=== PATIENT | male | born 1965 | race Caucasian/White ===

== ENCOUNTER 2017-03-09 17:34 | Emergency (ER) | payer MEDICARE, OTHER ==
[2017-03-09 17:55] VITALS: BP 122/90; PULSE 93; RESP 22; TEMP 97.5
[2017-03-09] MEDS ORDERED: KETOROLAC 30 MG/ML 1 ML VIAL IM STA (18:04)
[2017-03-09] MEDS ORDERED: ORPHENADRINE 30 MG/ML 2 ML VIAL IM STA (18:04)
--- NOTE | 2017-03-09 18:20 | ED ---
Back Pain HPI - General Chief Complaint: Back Pain/Injury Stated Complaint: Pinched nerve Time Seen by Provider: 03/09/17 17:56 Source: patient, RN notes reviewed Limitations: no limitations - History of Present Illness Initial Comments: This is a 51-year-old male who presents to the emergency department with chief complaint of low back pain. Patient states that 2 days ago he developed right lower back pain. Patient states that he has fusion of the cervical vertebrae so he is unable to twist his neck. He states that he has to twist his entire body to look from [id number]. 2 days ago he twisted and had instant pain in his right low back. He states that there is a knot in his muscle and his partner at bedside states that she she has been trying to massage it. Patient denies any saddle paresthesias, numbness or tingling, radiation of pain down the legs or loss of bladder or bowel function. Denies fever, chills, chest pain , shortness of breath, abdominal pain, nausea or vomiting, constipation or diarrhea, dysuria or hematuria, numbness or tingling, headache or vision changes. - Related Data Home Medications Medication Instructions Recorded Confirmed Gabapentin [Neurontin] 1,200 mg PO TID 09/19/14 03/05/15 Meloxicam [Mobic] 15 mg PO DAILY 09/19/14 03/05/15 Acetaminophen Tab [Tylenol Tab] 325 - 650 mg PO Q4H PRN 03/09/17 03/09/17 Atorvastatin [Lipitor] 10 mg PO DAILY 03/09/17 03/09/17 Diclofenac Sodium [Voltaren Gel] 2 gram TOPICAL DAILY PRN 03/09/17 03/09/17 Hydrochlorothiazide [Hydrodiuril] 25 mg PO DAILY 03/09/17 03/09/17 Prazosin HCl 2 mg PO DAILY 03/09/17 03/09/17 Venlafaxine HCl [Effexor XR] 75 mg PO DAILY 03/09/17 03/09/17 traMADol HCL [Ultram] 50 mg PO DAILY PRN 03/09/17 03/09/17 Previous Rx's Medication Instructions Recorded Cyclobenzaprine [Flexeril] 10 mg PO TID #12 tab 03/09/17 Allergies Allergy/AdvReac Type Severity Reaction Status Date / Time No Known Allergies Allergy Verified 03/09/17 18:27 Review of Systems ROS Statement: Those systems with pertinent positive or pertinent negative responses have been documented in the HPI. ROS Other: All systems not noted in ROS Statement are negative. Past Medical History Past Medical History: Hypertension History of Any Multi-Drug Resistant Organisms: None Reported Past Surgical History: Back Surgery Additional Past Surgical History / Comment(s): nerve blocks to back, c4-5 fusions, back surg 02/07, neck surgery 02/25 Past Psychological History: No Psychological Hx Reported Smoking Status: Never smoker Past Alcohol Use History: Occasional Past Drug Use History: None Reported General Exam - General Exam Comments Initial Comments: General: Awake and alert, well-developed; in no apparent distress. HEENT: Head atraumatic, normocephalic. Pupils are equal, round and reactive to light. Extraocular movements intact. Oropharynx moist without erythema or exudate. Neck: Supple. Normal ROM. Cardiovascular: Regular rate and rhythm. No murmurs, rubs or gallops. Chest symmetrical. Respiratory: Lungs clear to auscultation bilaterally. No wheezes, rales or rhonchi. Normal respiratory effort with no use of accessory muscles. Musculoskeletal: Normal ROM of thoracic and lumbar spine. No vertebral bony point tenderness. Patient has a tender, mobile mass overlying the right SI joint. This area is tender on palpation. Sensation is intact. Pedal pulses are 2+ equal and palpable bilaterally. Skin: [place], warm and dry without rashes or lesions. Neurological: Alert and oriented x3. CN II-XII grossly intact. Speech is fluent and answers are appropriate. No focal neuro deficits. Psychiatric: Normal mood and affect. No overt signs of depression or anxiety noted. Limitations: no limitations Course Vital Signs 03/09/17 17:50 Temperature 97.5 F L Pulse Rate 93 Respiratory 22 Rate Blood Pressure 122/90 O2 Sat by Pulse 97 Oximetry Medical Decision Making - Medical Decision Making This is a 51-year-old male who presents to the emergency department with chief complaint of low back pain. Patient denies saddle paresthesias, loss of bladder or bowel function, numbness and tingling. He is ambulating normally. Patient has a tender muscular knot right-side of lumbar back. He was given Toradol and Norflex while in the emergency department. Patient states he takes meloxicam and tramadol at home. Patient will be discharged home with Flexeril prescription. He was advised to use a heating pad intermittently. Return parameters were discussed. Patient is in agreement with plan and voices understanding. All questions were answered. Disposition Clinical Impression: Strain of lumbar region Disposition: HOME SELF-CARE Condition: Good Instructions: Low Back Strain (ED), Lower Back Exercises (ED) Additional Instructions: Please take medications as prescribed. Please use a heating pad intermittently. Please follow up with primary care provider within 1-2 days. Return to emergency department if symptoms should worsen or any concerns arise. Prescriptions: Cyclobenzaprine [Flexeril] 10 mg PO TID #12 tab Referrals: Pérez Uribe MD [Primary Care Provider] - 1-2 days Time of Disposition: 18:25
== END 2017-03-09 18:43 | disposition home or self-care (01) ==
LOC: EC 17:34
DX: S39.012A Strain of muscle, fascia and tendon of lower back, initial encounter (principal); I10 Essential (primary) hypertension; Z79.1 Long term (current) use of non-steroidal anti-inflammatories (NSAID); Z79.899 Other long term (current) drug therapy
CPT/HCPCS: 99282; 96372 ×2; J2360; J1885

== ENCOUNTER → 2017-06-19 | Outpatient (CLI) | payer MEDICARE, OTHER ==
[2017-06-19 10:44] LABS: HCT 42.5 % (39.0-53.0); HGB 13.8 gm/dL (13.0-17.5); MCH 27.9 pg (25.0-35.0); MCHC 32.4 g/dL (31.0-37.0); MCV 86.2 fL (80.0-100.0); Mean Platelet Volume 6.6; Platelet Count 314 k/uL (150-450); RBC 4.93 m/uL (4.30-5.90); RDW 13.5 % (11.5-15.5); WBC 8.6 k/uL (3.8-10.6)
[2017-06-19 11:27] LABS: ALT 39 U/L (21-72); AST 23 U/L (17-59); Albumin 3.9 g/dL (3.5-5.0); Alkaline Phosphatase 79 U/L (38-126); Anion Gap 12 mmol/L; Blood Urea Nitrogen 25 mg/dL (9-20); Calcium 9.2 mg/dL (8.4-10.2); Carbon Dioxide 27 mmol/L (22-30); Chloride 101 mmol/L (98-107); Cholesterol 200 mg/dL (<200); Glucose 125 mg/dL (74-99); HDL Cholesterol 40 mg/dL (40-60); LDL Cholesterol,Calculated 138 mg/dL (0-99); Potassium 4.3 mmol/L (3.5-5.1); Sodium 140 mmol/L (137-145); Total Bilirubin 0.9 mg/dL (0.2-1.3); Total Protein 6.5 g/dL (6.3-8.2); Triglycerides 109 mg/dL (<150)
[2017-06-19 12:15] LABS: Prostate Specific Antigen 0.87 ng/mL (0.00-4.00)
== END | disposition home or self-care (01) ==
LOC: LABWHC1 10:05
PROVIDERS: ATTEND Family Medicine
DX: Z00.00 Encounter for general adult medical examination without abnormal findings (principal); Z13.9 Encounter for screening, unspecified
CPT/HCPCS: 36415; 80053; 80061; 84153; 85027; 86803

== ENCOUNTER 2019-08-20 09:12 | Day surgery (SDC) | payer MEDICARE, OTHER ==
[2019-08-18 11:55] VITALS: BMI 33.6
[~2019-08-20 09:12] MED LIST: LACTATED RINGERS 1,000 ML IV SCH
[2019-08-20] MEDS ORDERED: LIDOCAINE 1% (10MG/ML) FOR IV START INTRADERMA ONE (09:46)
[2019-08-20] MEDS ORDERED: PROPOFOL 10 MG/ML 20 ML VIAL IV ONE (10:16)
[2019-08-20] MEDS ORDERED: LIDOCAINE 1% INJ 10MG/ML (20 ML MDV) ONE (10:16)
--- NOTE | 2019-08-20 10:41 | P.PCN ---
Date of Procedure: 08/20/19 Description of Procedure: BRIEF HISTORY: Patient is a 53-year-old male presenting for outpatient colonoscopy for evaluation of history of a benign or neoplasm of the colon. Denies any change in bowel habits, blood per rectum or abdominal pain. Last colonoscopy 2017 significant for poor prep. PROCEDURE PERFORMED: Colonoscopy with polypectomy. PREOPERATIVE DIAGNOSIS: Benign neoplasm of colon, history of colon polyps, last colonoscopy 2017 with poor prep. ESTIMATED BLOOD LOSS: Minimal. IV sedation per Anesthesia. PROCEDURE: After informed consent was obtained, the patient, was brought into the endoscopy unit. IV sedation was administered by Anesthesia under continuous monitoring. Digital rectal examination was normal. Initially the Olympus CF-190 flexible video colonoscope was then inserted in the rectum, gradually advanced into the cecum without any difficulty. Careful examination was performed as the scope was gradually being withdrawn. Ileocecal valve and the appendiceal orifice were visualized and appeared normal. The terminal ileum was intubated and appeared normal. Prep was excellent. Mucosa of the cecum, ascending colon, transverse colon, descending colon, sigmoid colon, and rectum appeared normal. Diminutive 2 mm ascending colon polyp removed with cold forcep polypectomy. A few scattered diverticula noted throughout the colon. Retroflexion was performed in the rectum and no lesions were seen, low-grade internal hemorrhoids were seen. The patient tolerated the procedure well. IMPRESSION: Diminutive ascending colon polyp removed with cold forcep polypectomy. Mild pandiverticulosis. RECOMMENDATIONS: Findings of this examination were discussed with the patient. Okay to resume diet. Okay to resume medications. Await pathology from polypectomy. Would recommend repeat colonoscopy in 7 years pending pathology from polypectomy.
[2019-08-21 08:44] VITALS: BP 111/72; PULSE 78; RESP 16; TEMP 97.8
== END 2019-08-20 11:20 | disposition home or self-care (01) ==
LOC: ORWHC2ENDO 09:12
PROVIDERS: ATTEND Internal Medicine
DX: K63.5 Polyp of colon (principal); K57.30 Diverticulosis of large intestine without perforation or abscess without bleeding; K64.8 Other hemorrhoids; I10 Essential (primary) hypertension; G47.33 Obstructive sleep apnea (adult) (pediatric); G43.909 Migraine, unspecified, not intractable, without status migrainosus; M19.90 Unspecified osteoarthritis, unspecified site; Z86.010 Personal history of colon polyps; Z79.899 Other long term (current) drug therapy; Z79.1 Long term (current) use of non-steroidal anti-inflammatories (NSAID); Z79.891 Long term (current) use of opiate analgesic; Z87.39 Personal history of other diseases of the musculoskeletal system and connective tissue; Z87.19 Personal history of other diseases of the digestive system; Z98.890 Other specified postprocedural states; Z98.1 Arthrodesis status; Z88.4 Allergy status to anesthetic agent; Z99.89 Dependence on other enabling machines and devices
CPT/HCPCS: 45380; 88305; J2001; J2704

== ENCOUNTER 2021-12-11 05:27 | Emergency (ER) | payer MEDICARE, OTHER ==
[2021-12-11 05:31] VITALS: TEMP 97.8
--- NOTE | 2021-12-11 05:39 | ED ---
Back Pain HPI - General Chief Complaint: Back Pain/Injury Stated Complaint: Lower Back Pain Time Seen by Provider: 12/11/21 05:37 Source: patient, RN notes reviewed, old records reviewed Limitations: no limitations - History of Present Illness Initial Comments: This is a 56-year-old, male DF for evaluation. Is presented for acute on chronic back pain. Patient has a history of back surgery. No traumatic injury recently. Patient does have pain down his right leg. No loss of bowel or bladder. No fevers. No modifying factors for symptoms symptoms are little bit worse when he tries to stand or walk but not really improved was relaxation laying down. Patient has had multiple MRIs of his back throughout the years secondary to dementia trauatic injuries, Complaint: back pain -: days(s) (3) Similar Symptoms Previously: Yes Place: home Radiation: none Severity: moderate Severity scale (1-10): 7 Quality: burning, sharp, stabbing Consistency: intermittent Improves With: immobilization Worsens With: movement, walking Context: unknown Associated Symptoms: denies other symptoms - Related Data Home Medications Medication Instructions Recorded Confirmed Gabapentin [Neurontin] 1,200 mg PO TID 09/19/14 08/20/19 Meloxicam [Mobic] 15 mg PO DAILY PRN 09/19/14 08/20/19 Atorvastatin [Lipitor] 20 mg PO HS 03/09/17 08/20/19 Prazosin HCl 2 mg PO HS 03/09/17 08/20/19 Venlafaxine HCl [Effexor XR] 75 mg PO DAILY 03/09/17 08/20/19 traMADol HCL [Ultram] 50 - 100 mg PO Q4HR PRN 03/09/17 08/20/19 Butalb/Acetaminophen/Caffeine 1 - 2 cap PO Q4HR PRN 08/18/19 08/20/19 [Fioricet 50-300-40 mg Capsule] Cyclobenzaprine [Flexeril] 10 mg PO HS 08/18/19 08/20/19 Lisinopril-Hctz 10-12.5 mg 1 tab PO DAILY 08/18/19 08/20/19 [Zestoretic 10-12.5] Voltaren Gel 1 % 1 applicate TOPICAL DIRECTED PRN 08/18/19 08/20/19 Zolpidem [Ambien] 10 mg PO HS PRN 08/18/19 08/20/19 Allergies Allergy/AdvReac Type Severity Reaction Status Date / Time No Known Allergies Allergy Verified 12/11/21 05:28 Review of Systems ROS Statement: Those systems with pertinent positive or pertinent negative responses have been documented in the HPI. ROS Other: All systems not noted in ROS Statement are negative. Past Medical History Past Medical History: Hypertension, Osteoarthritis (OA), Sleep Apnea/CPAP/BIPAP Additional Past Medical History / Comment(s): migraines, History of Any Multi-Drug Resistant Organisms: None Reported Past Surgical History: Back Surgery, Hernia Repair Additional Past Surgical History / Comment(s): left knee ACL, cervical fusion, umbillical hernia repair, left arm surgery after injury, Past Anesthesia/Blood Transfusion Reactions: Previous Problems w/ Anesthesia Additional Past Anesthesia/Blood Transfusion Reaction / Comment(s): ketamine- causes flashbacks d/t PTSD Past Psychological History: PTSD Past Alcohol Use History: Occasional Past Drug Use History: None Reported - Past Family History Mother Family Medical History: No Reported History General Exam Limitations: no limitations General appearance: alert, in no apparent distress Head exam: Present: atraumatic, normocephalic, normal inspection Eye exam: Present: normal appearance, PERRL, EOMI. Absent: scleral icterus, conjunctival injection, periorbital swelling ENT exam: Present: normal exam, mucous membranes moist Neck exam: Present: normal inspection. Absent: tenderness, meningismus, lymphadenopathy Respiratory exam: Present: normal lung sounds bilaterally. Absent: respiratory distress, wheezes, rales, rhonchi, stridor Cardiovascular Exam: Present: regular rate, normal rhythm, normal heart sounds. Absent: systolic murmur, diastolic murmur, rubs, gallop, clicks GI/Abdominal exam: Present: soft, normal bowel sounds. Absent: distended, tenderness, guarding, rebound, rigid Extremities exam: Present: normal inspection, full ROM, normal capillary refill. Absent: tenderness, pedal edema, joint swelling, calf tenderness Back exam: Present: normal inspection, tenderness, muscle spasm, paraspinal tenderness, vertebral tenderness. Absent: full ROM Neurological exam: Present: alert, oriented X3, CN II-XII intact Psychiatric exam: Present: normal affect, normal mood Skin exam: Present: warm, dry, intact, normal color. Absent: rash Course Vital Signs 12/11/21 05:28 Temperature 97.8 F Pulse Rate 74 Respiratory 16 Rate Blood Pressure 141/90 O2 Sat by Pulse 99 Oximetry - Reevaluation(s) Reevaluation #1: 12/11/21 05:56 medical record is reviewed Reevaluation #2: 12/11/21 05:58 patient has improvement of pain Reevaluation #3: 12/11/21 06:03 Patient informed results questions are answered Medical Decision Making - Medical Decision Making 56 male to the emergency department for acute on chronic back pain. Pain pain is well-controlled here in the ER patient given pain management and can be discharged home - Radiology Data Radiology results: report reviewed (XR LS spine is negative for acute disease), image reviewed Disposition Clinical Impression: Sciatica, Lumbar radiculopathy, Mid back pain Disposition: HOME SELF-CARE Condition: Good Instructions (If sedation given, give patient instructions): Acute Low Back Pain (ED) Is patient prescribed a controlled substance at d/c from ED?: No Referrals: Pérez Uribe MD [Primary Care Provider] - 1-2 days Time of Disposition: 06:10
[2021-12-11] MEDS ORDERED: dexAMETHasone 2 MG TAB PO STA (05:52)
[2021-12-11] MEDS ORDERED: IBUPROFEN 800 MG TAB PO STA (05:52)
[2021-12-11] MEDS ORDERED: ACET/COD 300 MG/30 MG STARTER PACK 6 TAB BTL PO STA (05:52)
[2021-12-11] MEDS ORDERED: IBUPROFEN 600 MG STARTER PACK 4 TAB BTL PO STA (05:52)
[2021-12-11] MEDS ORDERED: HYDROmorphone 1 MG/ML 1 ML SYRINGE IM STA (05:52)
--- NOTE | 2021-12-11 06:11 | XR ---
EXAMINATION TYPE: XR lumbar spine 2 or 3V DATE OF EXAM: 12/11/2021 COMPARISON: NONE HISTORY: Low back pain TECHNIQUE: 3 view FINDINGS: There is a mild levoscoliosis. There are spondylotic changes in the mid and lower lumbar sp ine. No compression fracture. There is L5 spondylolysis. There is a first-degree L5-S1 spondylolisthe sis. Sacroiliac joints are intact. IMPRESSION: There is L5 spondylolysis and mild L5-S1 spondylolisthesis. Multilevel degenerative hyper trophic disc changes. No acute fracture seen.
[2021-12-11 06:45] VITALS: BP 134/88; PULSE 63; RESP 18
== END 2021-12-11 06:46 | disposition home or self-care (01) ==
LOC: EC 05:27
DX: M54.41 Lumbago with sciatica, right side (principal); M54.16 Radiculopathy, lumbar region; I10 Essential (primary) hypertension
CPT/HCPCS: 99283; 96372; 72100; J1170; J8540

== ENCOUNTER → 2022-01-24 | Outpatient (CLI) | payer MEDICARE, OTHER ==
--- NOTE | 2022-01-24 19:09 | CT ---
EXAMINATION TYPE: CT lumbar spine wo con CT DLP: 1669.70 mGycm, Automated exposure control for dose reduction was used. DATE OF EXAM: 01/24/2022 6:21 PM COMPARISON: L-spine radiographs 01/09/2022. MRI lumbar spine 01/09/2022 CLINICAL INDICATION:Male, 56 years old with history of M43.07 SPONDYLOLISTHESIS;, SPONDYLOLISTHESIS. lower back pain. poss L4 fx. TECHNIQUE: Multiple axial images were obtained from the midportion of T11 through the sacroiliac cindy nts. Soft tissue and bone windows in coronal and sagittal planes were obtained and reviewed. Contrast used: none. Oral contrast used: none. FINDINGS: Alignment: There are 5 lumbar type vertebral bodies. There is grade 1 anterolisthesis of L5 on S1 wit h bilateral spondylolysis. Bone: Multilevel disc degeneration changes with osteophyte formation and disc space narrowing and va cuum disc phenomenon most pronounced at L5-S1. Scattered facet joint arthropathy is present. Iliac dhruv ints with osteophytes bilaterally. Sclerosis involving the superior endplate of L1 which correlates w ith bony edema on prior MRI.. Discs: T12-L1: No spinal canal or neural foraminal stenosis is identified. L1-L2: Disc bulge and facet joint arthropathy with mild spinal canal stenosis. The neural foramen are patent. L2-L3: Facet joint arthropathy, osteophytes and disc bulging result in mild spinal canal stenosis and mild bilateral neural foraminal stenosis. L3-L4: Facet joint arthropathy, osteophytes and disc bulging result in mild spinal canal stenosis and mild bilateral neural foraminal stenosis. L4-L5: Disc bulge with facet joint arthropathy with mild spinal canal stenosis. L5-S1: Grade 1 anterolisthesis with disc uncovering. No spinal canal or neural foraminal stenosis is identified. IMPRESSION: 1. Superior endplate of L1 demonstrates increased sclerosis which demonstrated edema on prior MRI on 12/30/2021 suggesting possible underlying subacute compression fracture. 2. No evidence of acute fracture of the lumbar spine. 3. Grade 1 anterolisthesis of L5 on S1 with bilateral spondylolysis.
== END | disposition home or self-care (01) ==
LOC: RADCTMAIN 17:58
PROVIDERS: ATTEND Orthopaedic Surgery
DX: M43.17 Spondylolisthesis, lumbosacral region (principal)
CPT/HCPCS: 72131

== ENCOUNTER → 2022-02-22 | Outpatient (CLI) | payer MEDICARE, OTHER | END | disposition home or self-care (01) | LOC: LABPAT 11:53 | PROVIDERS: ATTEND Orthopaedic Surgery | DX: Z01.812 Encounter for preprocedural laboratory examination (principal); Z22.322 Carrier or suspected carrier of Methicillin resistant Staphylococcus aureus; M43.16 Spondylolisthesis, lumbar region; M47.816 Spondylosis without myelopathy or radiculopathy, lumbar region; M48.061 Spinal stenosis, lumbar region without neurogenic claudication | CPT/HCPCS: 87070 ==

== ENCOUNTER 2022-03-01 10:13 | Observation (INO) | payer MEDICARE, OTHER ==
[2022-02-26 09:18] VITALS: BMI 31.6
--- NOTE | 2022-02-28 19:19 | P.HPOR ---
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 History: No Reported History Medications and Allergies Home Medications Medication Instructions Recorded Confirmed Type Gabapentin [Neurontin] 1,200 mg PO TID 09/19/14 02/26/22 History Meloxicam [Mobic] 15 mg PO DAILY PRN 09/19/14 02/26/22 History Atorvastatin [Lipitor] 20 mg PO HS 03/09/17 02/26/22 History Prazosin HCl 2 mg PO HS 03/09/17 02/26/22 History Venlafaxine HCl [Effexor XR] 75 mg PO DAILY 03/09/17 02/26/22 History traMADol HCL [Ultram] 50 - 100 mg PO Q4HR PRN 03/09/17 02/26/22 History Butalb/Acetaminophen/Caffeine 1 - 2 cap PO Q4HR PRN 08/18/19 02/26/22 History [Fioricet 50-300-40 mg Capsule] Cyclobenzaprine [Flexeril] 10 mg PO HS 08/18/19 02/26/22 History Lisinopril-Hctz 10-12.5 mg 1 tab PO DAILY 08/18/19 02/26/22 History [Zestoretic 10-12.5] Zolpidem [Ambien] 10 mg PO HS PRN 08/18/19 02/26/22 History Diclofenac Sodium Gel [Voltaren 2 gm TOPICAL QID 02/26/22 02/26/22 History Gel] Allergies Allergy/AdvReac Type Severity Reaction Status Date / Time No Known Allergies Allergy Verified 02/26/22 08:59 Physical Examination Osteopathic Statement: *. No significant issues noted on an osteopathic structural exam other than those noted in the History and Physical/Consult.
[~2022-03-01 10:13] MED LIST changes: +ACETAMINOPHEN TAB 500 MG TAB PO PRN; +DEXAMETHASONE SOD PHOSPHATE 4 MG/ML 1 ML VIAL IV ONE; +GABAPENTIN 300 MG CAP PO PRN; +HYDROmorphone 0.5 MG/0.5 ML SYRINGE IVP PRN; -LACTATED RINGERS 1,000 ML IV SCH; +LIDOCAINE 1% (10MG/ML) FOR IV START INTRADERMA PRN; +MIDAZOLAM 2 MG/2 ML VIAL IV PRN; +ONDANSETRON 4 MG/2 ML VIAL IVP ONE; +ONDANSETRON 4 MG/2 ML VIAL IVP PRN; +TRANEXAMIC ACID IN NACL,ISO-OS 1,000 MG in SALINE 1 100ML.BAG IVPB PRN
[2022-03-01] MEDS ORDERED: LIDOCAINE 1% (10MG/ML) FOR IV START INTRADERMA ONE (11:05)
[2022-03-01] MEDS: LACTATED RINGERS 1,000 ML IV SCH (11:05)
[2022-03-01] MEDS ORDERED: ePHEDrine 50 MG/ML 1 ML VIAL ONE (12:05)
[2022-03-01] MEDS ORDERED: fentaNYL (PF) 50 MCG/ML 2 ML AMP ONE (12:05)
[2022-03-01] MEDS ORDERED: SUCCINYLCHOLINE CHLORIDE 200 MG/10 ML VIAL IV ONE (12:05)
[2022-03-01] MEDS ORDERED: LIDOCAINE 2% INJ 20 MG/ML (2 ML VIAL) ONE (12:05)
[2022-03-01] MEDS ORDERED: PROPOFOL 10 MG/ML 20 ML VIAL IV ONE (12:05)
[2022-03-01] MEDS ORDERED: MIDAZOLAM 2 MG/2 ML VIAL ONE (12:05)
[2022-03-01] MEDS ORDERED: ROCURONIUM 10 MG/ML (5 ML VIAL) IV ONE (12:05)
[2022-03-01] MEDS ORDERED: GELATIN SPONGE,ABSORB (LARGE) 1 EACH SPONGE TOPICAL ONE (12:10)
[2022-03-01] MEDS ORDERED: BUPIVACAIN-EPI 0.25%-1:200,000 30 ML VIAL SQ ONE (12:10)
[2022-03-01] MEDS ORDERED: VANCOMYCIN 1,000 MG VIAL MISCELLANE ONE (12:10)
[2022-03-01] MEDS ORDERED: THROMBIN (BOVINE) 5,000 UNIT VIAL TOPICAL ONE (12:10)
[2022-03-01] MEDS ORDERED: LACTATED RINGERS 1,000 ML IV ONE ×2 (15:42→16:57)
--- NOTE | 2022-03-01 15:49 | XR ---
Fluoroscopy INDICATION: Pain FINDINGS: Fluoroscopy time: 1 minute 23 seconds. Images obtained: 4. IMPRESSIONS: 1. Documentation of fluoroscopy.
--- NOTE | 2022-03-01 15:57 | P.OP ---
Date of Procedure: 03/01/22 Preoperative Diagnosis: 1. L4-S1 spondylosis with central and foraminal stenosis 2. Mechanical low back pain 3. LE radiculopathy Postoperative Diagnosis: 1. L4-S1 spondylosis with central and foraminal stenosis 2. Mechanical low back pain 3. LE radiculopathy Procedure(s) Performed: 1. L4-5 and L5-S1 posteriolateral and interbody fusion (02157, 24364) 2. Segmental instrumentation L4-S1 (76161) 3. Insertion of biomechanical device L4-5 and L5-S1 ([id number]) 4. Laminectomy, complete facetectomy and foraminotomy L4-5 and L5-S1 for decompression and cage placement (72630, 58461) 5. Use of sourceasy 3D intraoperative navigation for screw planning and placement (12615) Use of IONmoziy Use of microscope Implants: -Globus Creo Screw MIS system -Zivation expandable cage x2 -Autograft, allograft, MagnatOs Anesthesia: GETA Surgeon: Roberto William Adjunct Phlebotomy Instructor #1: Dipti Fried (Was present from positioning to end of first cage placement) Adjunct Phlebotomy Instructor #2: Moreno Mckeon (was present from end of first cage to end of case. ) Estimated Blood Loss (ml): 100 IV fluids (ml): 2,500 Urine output (ml): 350 Pathology: none sent Condition: stable Disposition: PACU Indications for Procedure: Mr. Caal is presenting for evaluation of low back pain. It was my pleasure to have seen and examined Mr. Caal. In our visit today we have had a chance to go over subjective complaints, physical examination findings and treatments including the natural course history without intervention and various interventional options. The patients imaging demonstrates: XRayLumbar Multiview (AP, Lateral, Flexion, Extension) with AP pelvis; 5 views taken at [facility] on 01/09/22: Images reviewed with pt with the following findings: L3-S1 spondylosis with disc height loss and facet arthropathy L5-S1 Grade I spondylolistheisis, mobile on F/E films Poss L5 spondylolysis, CT better to view No acute fracture No lesions LL: 48 PI: 56 CT scan without contrast from 01/24/22 completed at [facility] of the lumbar spine demonstrates: images reviewed with the patient demonstrate Spondylosis L3-S1, disc height loss, degeneration and dessication L5-S1 Grade I spondylolisthesis due to spondylolysis L5 b/l pars defects B/l Foraminal stenosis L3-S1 Moderate to severe Central stenosis L3-S1 moderate vacuum disc L5-S1 Severe facet arthrosis Likely L1 old compression fracture [facility] Lumbar Spine: IMages reviewed with pt with the following findings: Spondylosis L3-S1, disc height loss, degeneration and dessication L5-S1 Grade I spondylolisthesis due to spondylolysis L5 b/l pars defects B/l Foraminal stenosis L3-S1 Moderate to severe Central stenosis L3-S1 moderate Boggy facets with facet arthropathy L3-S1 No fracture No lesions On physical exam, Mr. Caal demonstrates severely restricted lumbar ROM with bilateral lower extremity radiculopathy. Overall is pain is significantly impacting his ability to perform functional testing and cannot perform flexion/extension movements without severe pain. Furthermore the patient does also demonstrate right lower extremity weakness specifically with regards to his foot that is impacting his gait and causing unsteadiness. Patient is ambulating independently. I have explained to the patient that as their condition progresses it will cause further neurological deficits and eventual paralysis. Based on the patients imaging, physical exam, and the rapid progression and disabling nature of their symptoms, at this time I recommend surgery in the form of a: lumbar (L4-S1) Decompression and Fusion . I discussed the risk and benefits of this procedure at length with Mr. Caal. The patient [significant other] agreed to considered pursuing the procedure abovementioned. Prior to surgery, she should follow up with her PCP (Cardio, ID, IM etc) for clearance. Questions were invited and answered, and the patient wishes to proceed as outlined below. Currently, I am recommendin.lumbar (L4-S1) Decompression and Fusion Description of Procedure: L4-S1 MIS TLIF The patient was seen and examined in the preoperative area.All preoperative protocols were followed.Informed consent was obtained, risks and benefits of the procedure were discussed at length.Risks including bleeding infection damage to the surrounding tissue and risk of re-operation were discussed with the patient.Risk of anesthesia up to and including was discussed with the patient.These are outlined in the risk review.They were willing to accept these risks and all the risks of surgery.The patient was given a weight-based dose of antibiotics in the form of 2 g Ancef.The patient was seen and evaluated by the anesthesia team who deemed them fit for surgery. The site was marked, the patient was willing to proceed with the procedure. The patient was transferred to the operative suite by the Department of anesthesia. They were then drifted off to sleep by the department anesthesia and GETA was performed. The patient tolerated this well. [place] catheter was placed by nursing staff, a-traumatically. Once confirmation of lines and ventilation the patient was transferred to a prone Kanu table very carefully. All bony prominences including wrists, elbows, axilla, chest, hips, and thighs, and feet were padded very well. Special attention was paid to the genitalia, and these were padded accordingly. SCDs were placed on bilateral lower extremities and were connected. Arms were well padded and placed on arm boards up and out in the 90/90 position. Once in position, again we confirmed good ventilation capabilities and that lines were running appropriately. The patients Lumbar spine was then exposed. 1010s were placed outlining the incision site. Standard alcohol was used to clean the incision site and allowed to dry. C-arm was used to needle localize the pedicles at L4-S1 and bio-carlos the patient and confirm level for incision which was marked with a skin marker. Operative briefing was performed with all teams and everyone in agreement to proceed. The patient was then prepped and draped in a normal sterile fashion. Timeout was then performed, and all parties agreed with the procedure to be performed. 3D C arm was then used to spine and register Shahla navigation for screw placement. Screws were then pre planned. Navigated Jamshidi was then used to target pedicles bilaterally at L4-S1. Jamshidi was used and bi-planar fluoroscopy was used to access L4 pedicles. Once accessed wires were placed in their void. This was repeated at L5 and S1 bilaterally. Skin incision was then made along these wires and on the left side, perfect scalpel was used over the wire to create a path and measure screw length at L4-S1. Screws were then plac ed over wires on the left side. Once screw was at the back of the body wire was removed. The screws were confirmed to be in good position on AP and lateral. We then tested screws and they all tested above 20 mA. Attention was then turned to inter-body fusion at L5-S1. Tubular retractor system was placed at the interspace of L5-S1 using biplanar c arm. Once in position and dilated up to 26mm tube it was locked to the bed and confirmed in good position. Microscope was then brought in for visualization. Limited myomectomy was performed and laminectomy, complete facetectomy and foraminotomy performed at L5-S1 using high speed rambo and Kerrison rongure. The ligamentum was removed and dural sac decompressed. Exiting and traversing roots visualized and decompressed. Neural elements were then protected, and disc space accessed with an osteotome. Sequential shaving then done under lateral imaging and complete discectomy performed using ady, pituitary and curette. Once good bleeding endplates accomplished and good height judaism with trials, a combination of autograft, allograft and synthetic placed anterior in the disc space. The cage was then selected and impacted into place under lateral imaging. The cage was then expanded restoring height, lordosis and alignment. The cage was backfilled with bone graft through a funnel. The packaging design engineer removed and the area inspected. Good cage placement, stable cage and no injuries. Area was irrigated copiously, and meticulous hemostasis achieved. The tubular retractor was then removed under direct visualization. Attention was then turned to inter-body fusion at L4-5. Tubular retractor system was placed at the interspace of L4-5 using biplanar c arm. Once in position and dilated up to 26mm tube it was locked to the bed and confirmed in good position. Microscope was then brought in for visualization. Limited myomectomy was performed and laminectomy, complete facetectomy and foraminotomy performed at L4-5 using high speed rambo and Kerrison rongure. The ligamentum was removed and dural sac decompressed. Exiting and traversing roots visualized and decompressed. Neural elements were then protected, and disc space accessed with an osteotome. Sequential shaving then done under lateral imaging and complete discectomy performed using ady, pituitary and curette. Once good bleeding endplates accomplished and good height judaism with trials, a combination of autograft, allograft and synthetic placed anterior in the disc space. The cage was then selected and impacted into place under lateral imaging. The cage was then expanded restoring height, lordosis and alignment. The cage was backfilled with bone graft through a funnel. The packaging design engineer removed and area inspected. Good cage placement, stable cage and no injuries. Area was irrigated copiously, and meticulous hemostasis achieved. The tubular retractor was then removed under direct visualization. Screws were then selected and placed over the previously placed wires on the right side. This was done in the fashion described above. Screws were then tested, and all tested above 15 mA. Shells were then placed on the tabs. Jamal length was then measured, and rods selected. They were then placed through the MIS tabs, subfascial. These were then locked into place with set screws and final tightened. Jamal holders removed and images taken showing good placement of rods good lordosis and judaism of height. Tabs were broken off. Wounds were then copiously irrigated with NSS. Rambo used for TP decortication and mixture of MagnatOs, allograft and autograft packed posterolateral. Facia was then closed with 0 Vircyl on a Scorpion suture passer for MIS closure. Deep subq closed with 0 Vicryl. Superficial subq closed with 2-0 Vicryl and skin with dermabond skin glue and tape after monocryl in subcuticular region. Wound edges approximated very well. Wound was then cleaned with alcohol and dried. Wounds dressed with Optifoam dressings. The patient was then transferred off the table back to their hospital bed a- traumatically.They were extubated by the department of anesthesia.They were then transferred to PACU in stable condition having tolerated the procedure with no complications.
--- NOTE | 2022-03-01 15:58 | FL ---
Intraoperative/procedural fluoroscopic services were provided. Total fluoroscopy time is 1 minute 23 secondswith a total of 3 submitted images to PACS. Please see the operative/procedural note for furth er details.
[2022-03-01] MEDS ORDERED: CYCLOBENZAPRINE 10 MG TAB PO PRN (16:02)
[2022-03-01] MEDS ORDERED: ONDANSETRON 4 MG/2 ML VIAL IVP PRN (16:02)
[2022-03-01] MEDS ORDERED: HYDROmorphone 0.5 MG/0.5 ML SYRINGE IVP PRN (16:02)
[2022-03-01] MEDS ORDERED: MAGNESIUM HYDROXIDE 2,400 MG/10 ML CUP PO PRN (16:02)
[2022-03-01] MEDS ORDERED: SENNOSIDES-DOCUSATE SODIUM 1 EACH TAB PO PRN (16:02)
[2022-03-01] MEDS: HYDROmorphone 1 MG/ML 1 ML SYRINGE IVP PRN (17:43)
[2022-03-01] MEDS: ACETAMINOPHEN TAB 500 MG TAB PO SCH ×2 (17:53→23:14)
[2022-03-01] MEDS: GABAPENTIN 400 MG CAP PO SCH (21:41)
--- NOTE | 2022-03-01 22:48 | P.CONS ---
History of Present Illness - Reason for Consult Consult date: 03/01/22 - History of Present Illness The patient is a 56-year-old male with a PMH of hypertension, hyperlipidemia, and chronic lower back pain who was admitted for scheduled lumbosacral laminectomy and fusion. The patient underwent the procedure earlier today and was seen postoperatively on the surgical unit. He reported good control of his pain at the time of interview, rated at a 3 out of 10 in the lower back. Patient states that he has been up and walking to the restroom since the procedure. He has passed urine but has not had a bowel movement as of yet. He denied experiencing pain of the legs and denied numbness, tingling, or weakness of the legs. Also denied experiencing chest discomfort or shortness of breath, fever, chills, cough, nausea, vomiting, abdominal pain, diarrhea. Review of systems: Pertinent positives and negatives as discussed in HPI, a complete review of systems was performed and all other systems are negative. Physical examination: General: non toxic, no distress, appears at stated age, obese Derm: no unusual rashes/lesions, warm Head: atraumatic, normocephalic, symmetric Eyes: EOMI, no lid lag, anicteric sclera, pupils equal round reactive to light ENT: Nose and ears atraumatic Neck: No cervical lymphadenopathy, trachea midline, supple Mouth: no lip lesion, mucus membranes moist Cardiovascular: S1S2 reg, no murmur, positive dorsalis pedis pulse bilateral, no edema Lungs: CTA bilateral, no rhonchi, no rales, no accessory muscle use Abdominal: soft, nontender to palpation, no guarding Ext: muscle strength 5 out of 5 in all 4 extremities grossly, no gross muscle atrophy, no contractures, Neuro: CN II-XI grossly intact, no gross focal neuro deficits Psych: Alert, oriented, appropriate affect Assessment/plan Chronic conditions: Hypertension, hyperlipidemia -Continue with all meds Status post lumbosacral laminectomy and fusion -Defer management including pain control and DVT prophylaxis to the primary surgery service We appreciate this opportunity to be involved in this patient's care. We will follow the patient with you. For any further questions, please not hesitate to contact the sound inpatient team. Past Medical History Past Medical History: Hyperlipidemia, Hypertension, Osteoarthritis (OA), Sleep Apnea/CPAP/BIPAP Additional Past Medical History / Comment(s): migraines, USES BI-PAP MACHINE History of Any Multi-Drug Resistant Organisms: None Reported Past Surgical History: Back Surgery, Hernia Repair, Orthopedic Surgery Additional Past Surgical History / Comment(s): left knee ACL, cervical fusion, umbilical hernia repair, left arm surgery after injury, COLONOSCOPY, MULTIPLE NERVE ABLATIONS TO BACK, LUMBAR FUSION 03/01/2022 Past Anesthesia/Blood Transfusion Reactions: Previous Problems w/ Anesthesia Additional Past Anesthesia/Blood Transfusion Reaction / Comm: ketamine- causes flashbacks d/t PTSD Smoking Status: Never smoker - Past Family History Mother Family Medical History: Hypertension Medications and Allergies Home Medications Medication Instructions Recorded Confirmed Type Gabapentin [Neurontin] 1,200 mg PO TID 09/19/14 02/26/22 History Meloxicam [Mobic] 15 mg PO DAILY PRN 09/19/14 02/26/22 History Atorvastatin [Lipitor] 20 mg PO HS 03/09/17 02/26/22 History Prazosin HCl 2 mg PO HS 03/09/17 02/26/22 History Venlafaxine HCl [Effexor XR] 75 mg PO DAILY 03/09/17 02/26/22 History traMADol HCL [Ultram] 50 - 100 mg PO Q4HR PRN 03/09/17 02/26/22 History Butalb/Acetaminophen/Caffeine 1 - 2 cap PO Q4HR PRN 08/18/19 02/26/22 History [Fioricet 50-300-40 mg Capsule] Cyclobenzaprine [Flexeril] 10 mg PO HS 08/18/19 02/26/22 History Lisinopril-Hctz 10-12.5 mg 1 tab PO DAILY 08/18/19 02/26/22 History [Zestoretic 10-12.5] Zolpidem [Ambien] 10 mg PO HS PRN 08/18/19 02/26/22 History Diclofenac Sodium Gel [Voltaren 2 gm TOPICAL QID 02/26/22 02/26/22 History Gel] Allergies Allergy/AdvReac Type Severity Reaction Status Date / Time No Known Allergies Allergy Verified 03/01/22 10:49 Physical Exam Vitals: Vital Signs Temp Pulse Resp BP Pulse Ox 03/01/22 20:49 74 81/58 96 03/01/22 20:29 72 106/64 95 03/01/22 19:29 81 90/54 96 01/19/23 19:15 98 98/52 97 03/01/22 19:14 80 72/52 97 03/01/22 18:44 91 92/53 82 L 03/01/22 18:02 98.3 F 62 17 101/66 03/01/22 16:51 91 16 100/45 95 03/01/22 16:36 81 16 94/51 92 L 03/01/22 16:21 86 16 116/66 97 03/01/22 16:06 98.1 F 106 H 16 104/65 100 03/01/22 11:00 98.2 F 76 16 130/64 95 Intake and Output 03/01/22 03/01/22 03/01/22 06:59 14:59 22:59 Intake Total 1650 1000 Output Total 300 Balance 1650 700 Intake: IV 1650 1000 Output: Urine 200 Estimated Blood Loss 100 Other: # Voids 1 Weight 110.3 kg 110.3 kg
[2022-03-01] MEDS ORDERED: ZOLPIDEM 5 MG TAB PO PRN (22:55)
--- NOTE | 2022-03-01 23:53 | CT ---
EXAMINATION TYPE: CT lumbar spine wo con DATE OF EXAM: 03/01/2022 COMPARISON: 01/24/2022 HISTORY: post op lumbar fusion CT DLP: 1952.6 mGycm Automated exposure control for dose reduction was used. Images obtained from the level of T12-S2 vertebra with no contrast. There is manuel and screws fusing posteriorly the lumbar spine from L4 to S1. There is a few millimeter anterior subluxation of L5 in relation S1. There is bilateral L5 spondylolysis. No significant compre ssion deformity. There is no lumbar paraspinal mass. There is soft tissue air and fluid posteriorly related to recent surgery. No focal bone destruction. Sacroiliac joints appear intact. There is disc prosthesis at L4-5 and L5-S1. IMPRESSION: Multilevel posterior fusion surgery. L5 spondylolysis. No complicating process seen. Recent postsurgi kwan changes. No adverse change compared to old exam.
[2022-03-02] MEDS: ACETAMINOPHEN TAB 500 MG TAB PO SCH ×3 (05:28→17:12)
[2022-03-02] MEDS: GABAPENTIN 400 MG CAP PO SCH ×3 (07:37→22:14)
[2022-03-02] MEDS: VENLAFAXINE HCL ER 75 MG CAP PO SCH (07:37)
--- NOTE | 2022-03-02 08:21 | P.PN ---
Subjective Progress Note Date: 03/02/22 Principal diagnosis: Lumbar spondylosis Lumbar stenosis Patient seen and examined this morning. Patient was resting in bed. He does report that his pain is managed on current regimen, increased pain with activity. RN and patient notified abstract writer that patient had a fall onto his knee while ambulating in hallway. Staff was next to him holding the gait belt and were able to catch him so that it was not a direct fall onto his knees. Patient states that his knees buckle on him sometimes, symptoms prior to procedure. Patient denies any injury, no redness or swelling to bilateral knees. Surgical dressings are clean dry and intact, no drainage noted. Encouraged patient to continue to work with physical therapy. Prescription placed in chart for a rolling walker and LSO brace. Patient states he may be ready to go home later today. We will reassess this afternoon. Patient has been afebrile, denies nausea/vomiting, or chest pain. Objective - Vital Signs Vital signs: Vital Signs Temp 98.4 F 03/02/22 01:59 Pulse 86 03/02/22 01:59 Resp 18 03/02/22 01:59 BP 97/56 03/02/22 01:59 Pulse Ox 94 L 03/02/22 01:59 FiO2 Intake & Output 03/01/22 03/02/22 03/02/22 18:59 06:59 18:59 Intake Total 2650 Output Total 300 Balance 2350 Weight 110.3 kg Intake: IV 2650 Output: Urine 200 Estimated Blood Loss 100 Other: # Voids 1 5 - Exam Physical Examination General: The patient is awake and alert, in no acute distress Skin: Skin is warm and dry with no obvious rashes or lesions. Hairy patches absent, no dorsal skin dimples, no cafe au lait spots. Bilateral surgical incisions to the lumbar, dressings clean dry and intact. Eye: Pupils are equal, round and reactive to light, extra-ocular movements are intact; there is normal conjunctiva bilaterally. Neck: The neck is supple, there is no tenderness and ROM intact. Cardiovascular: There is a regular rate and rhythm. No murmur, rub or gallop is appreciated. Respiratory: Lungs are clear to auscultation, respirations are non-labored, breath sounds are equal. Gastrointestinal: Soft, non-distended, non-tender abdomen. Back: There is mild tenderness to the paralumbar region. There is no obvious deformity . Musculoskeletal: ROM limited secondary to pain and stiffness from surgical procedure. Muscle strength in all major muscle groups of bilateral upper extremities 5/5, bilateral lower extremities 4/5. Neurological: CN 2-12 intact. There are no obvious motor or sensory deficits. Movement and coordination equal and intact. Sensory exam to light touch intact C5-T1 and intact from L2-S1. Reflexes 2/4 in bilateral upper and lower extremities. Negative Hoffmans, babinski, and clonus signs. Psychiatric: Cooperative, appropriate mood & affect, normal judgment. - Labs CBC & Chem 7: 03/02/22 05:57 03/02/22 05:57 Assessment and Plan Assessment: Postop day 1: MIS posterior lateral interbody fusion L4-S1 with decompression Lumbar spondylosis Lumbar stenosis Plan: Plan: -Appreciate operational risk consultant and team management. - Prescription left in chart for rolling walker and LSO brace. -Activity: Ambulate QID, OOB all meals, up and about, limit lifting bending twisting to less than 5 lbs. Use walker or cane if needed for stability. -Daily PT/OT, increase ambulation strength and balance. -Brace when up and about, not needed in bed or chair -Pain control: Adequate at this time -Meds: reviewed -GI ppx: senna, Miralax -DVT PPX: OK to restart Heparin tonight -Hygiene: Shower today. Maintain dressing clean and dry. Meticulous cleaning after BMs away from the incision site -Encourage IS 10x/hr -Dispo: Anticipate discharge home later today vs tomorrow with homecare *I reviewed and discussed this case with my attending Dr. William, whom has reviewed this chart and films and is in agreement with assessment and plan of care as outlined above. I have personally seen and examined the patient, performed the documentation and the assessment and plan as written. Number of minutes spent on the visit: 20m.
[2022-03-02 08:50] LABS: HCT 40.3 % (39.6-50.0); HGB 12.9 g/dL (13.0-17.0); MCH 28.3 pg (27.0-32.0); MCV 88.4 fL (80.0-97.0); Mean Platelet Volume 9.4 fL (9.5-12.2); NRBC Per 100 WBC 0 /100 WBCS (0.0-0.0); Platelet Count 297 X 10*3/uL (140-440); RBC 4.56 X 10*6/uL (4.40-5.60); RDW 13.6 % (11.5-14.5); WBC 17.27 X 10*3/uL (4.50-10.00)
[2022-03-02 09:00] LABS: African American GFR (CKD) 109.5 (60.0-200.0); Anion Gap 10.3 mmol/L (10.00-18.00); BUN/Creat Ratio 22.78 Ratio (12.00-20.00); Blood Urea Nitrogen 20.5 mg/dL (9.0-27.0); Calcium 8.9 mg/dL (8.7-10.3); Carbon Dioxide 26.7 mmol/L (20.0-27.5); Non-African American GFR(CKD) 94.5 (60.0-200.0); Potassium 4.3 mmol/L (3.5-5.5)
[2022-03-02] MEDS ORDERED: LISINOPRIL-HCTZ 10-12.5 MG 1 EACH TAB PO SCH (09:00)
[2022-03-02 09:34] LABS: Basophils # (A) 0.02 X 10*3/uL (0.00-0.10); Basophils % (A) 0.1 %; Eosinophils # (A) 0.05 X 10*3/uL (0.04-0.35); Eosinophils % (A) 0.3 %; Immature Grans, Automated 0.4 %; Lymphocytes # (A) 2.21 X 10*3/uL (0.90-5.00); Lymphocytes % (A) 12.8 %; Monocytes # (A) 1.59 X 10*3/uL (0.20-1.00); Monocytes % (A) 9.2 %; Neutrophils # (A) 13.33 X 10*3/uL (1.80-7.70); Neutrophils % (A) 77.2 %
[2022-03-02] MEDS: HYDROmorphone 1 MG/ML 1 ML SYRINGE IVP PRN ×2 (10:47→15:06)
--- NOTE | 2022-03-02 14:04 | P.PN ---
Subjective Progress Note Date: 03/02/22 The patient is a 56-year-old male with a PMH of hypertension, hyperlipidemia, and chronic lower back pain who was admitted for scheduled lumbosacral laminectomy and fusion. The patient underwent the procedure earlier today and was seen postoperatively on the surgical unit. Patient seen and examined. No acute events overnight. Patient reports 6-7 out of 10 pain in his lower back. He has been able to ambulate with the aid of a walker. General: non toxic, no distress, appears at stated age Derm: warm, dry Head: atraumatic, normocephalic, symmetric Eyes: EOMI, no lid lag, anicteric sclera Mouth: no lip lesion, mucus membranes moist Cardiovascular: S1S2 reg, no murmur Lungs: CTA bilateral, no rhonchi, no rales , no accessory muscle use Ext: no gross muscle atrophy, no edema, no contractures Neuro: no focal neuro deficits Psych: Alert, oriented, appropriate affect Assessment/plan #Leukocytosis Leukocytosis likely reactive given surgical procedure. No signs of active infection. Continue to monitor. Chronic conditions: Hypertension, hyperlipidemia Continue with all meds Status post lumbosacral laminectomy and fusion Defer management including pain control and DVT prophylaxis to the primary surgery service Working well with PT and OT. Likely discharge home tomorrow if able to achieve better pain control. We appreciate this opportunity to be involved in this patient's care. We will follow the patient with you. For any further questions, please not hesitate to contact the [facility] inpatient team. Objective - Vital Signs Vital signs: Vital Signs Temp 98.1 F 03/02/22 08:00 Pulse 81 03/02/22 08:00 Resp 17 03/02/22 08:00 BP 103/52 03/02/22 08:00 Pulse Ox 93 L 03/02/22 08:00 FiO2 Intake & Output 03/01/22 03/02/22 03/02/22 18:59 06:59 18:59 Intake Total 2650 Output Total 300 Balance 2350 Weight 110.3 kg Intake: IV 2650 Output: Urine 200 Estimated Blood Loss 100 Other: # Voids 1 5 - Labs CBC & Chem 7: 03/02/22 05:57 03/02/22 05:57 Labs: Abnormal Lab Results - Last 24 Hours (Table) 01/20/23 01/20/23 Range/Units 05:57 05:57 WBC 17.27 H (4.50-10.00) X 10*3/uL Hgb 12.9 L (13.0-17.0) g/dL MPV 9.4 L (9.5-12.2) fL Immature Gran # 0.07 H (0.00-0.04) X 10*3/uL Neutrophils # 13.33 H (1.80-7.70) X 10*3/uL Monocytes # 1.59 H (0.20-1.00) X 10*3/uL BUN/Creatinine Ratio 22.78 H (12.00-20.00) Ratio
[2022-03-02] MEDS: CYCLOBENZAPRINE 10 MG TAB PO SCH ×2 (15:03→22:14)
[2022-03-02] MEDS: ATORVASTATIN 20 MG TAB PO SCH (20:46)
[2022-03-02] MEDS ORDERED: PRAZOSIN 1 MG CAP PO SCH (21:00)
[2022-03-03] MEDS: ACETAMINOPHEN TAB 500 MG TAB PO SCH ×5 (00:15→23:38)
[2022-03-03] MEDS: HYDROmorphone 1 MG/ML 1 ML SYRINGE IVP PRN ×3 (00:15→21:38)
[2022-03-03] MEDS: GABAPENTIN 400 MG CAP PO SCH ×3 (07:41→21:33)
[2022-03-03] MEDS: VENLAFAXINE HCL ER 75 MG CAP PO SCH (07:41)
[2022-03-03] MEDS: CYCLOBENZAPRINE 10 MG TAB PO SCH ×3 (07:41→21:33)
[2022-03-03] MEDS: LACTATED RINGERS 1,000 ML IV SCH (08:13)
--- NOTE | 2022-03-03 10:22 | P.PN ---
Subjective Progress Note Date: 03/03/22 Principal diagnosis: Status post MIS L4-S1 decompression and fusion Patient was examined today at bedside, he is resting in his hospital bed. He states that he was up in a hospital chair yesterday for a few hours. Patient states. Pain is when he initiates getting out of bed. Patient states once he is up and standing the pain severely subsides. He has been utilizing a walker with ambulation. He is urinating with no difficulty, he is passing gas. Patient has continued to utilize the IV Dilaudid as needed for pain. Objective - Vital Signs Vital signs: Vital Signs Temp 98.1 F 03/03/22 06:55 Pulse 86 03/03/22 06:55 Resp 16 03/03/22 06:55 BP 107/62 03/03/22 06:55 Pulse Ox 92 L 03/03/22 06:55 FiO2 Intake & Output 03/02/22 03/03/22 03/03/22 18:59 06:59 18:59 Output Total 750 Balance -750 Output: Urine 750 Other: # Voids 2 1 1 - Exam Gen: AOx3, NAD VSS stable at this time Integument: Bandages are clean, dry and intact Palpation: Mild tenderness with palpation to the paraspinal regions in the lower lumbar spine ROM: Range of motion in all major muscle groups of bilateral upper and lower extremi ty, no focal deficits Sensory Exam: Senory exam to light touch is intact C5-T1 Senosry exam to light touch is intact L2-S1, patient notes significant improvement in the numbness in the left lower extremity. Patient notes a small area numbness on the right lower extremity near the knight that is greatly improved since surgery Motor: 55 strength appreciated in the bilateral upper extremities with shoulder elevation, extension, elbow flexion, wrist extension, wrist flexion, powerhouse tender 4-5 strength appreciated in the bilateral lower extremities with hip flexion, knee extension, knee flexion, plantar flexion, dorsiflexion, EHL, FHL Reflexes: 2/4 in all UE and LE Negative Hoffmans, Babinski, clonus bilaterally - Labs CBC & Chem 7: 03/02/22 05:57 03/02/22 05:57 Assessment and Plan Assessment: Postoperative day #2 status post MIS L4-S1 decompression and fusion Plan: Pain control, we discussed pain medication today at bedside. We will like to discontinue more of the IV pain medication. We will hold off milligrams Dilaudid after tonight. Also had multiple stool softeners to help with prevention of constipation DVT prophylaxis, compression stockings at all times, SCDs while in bed or in chair Weight-bear as tolerated with walker, no bending, lifting or twisting Continue to monitor dressing, change if notable saturation Encourage incentive spirometer Discussed with case management the need for home health care after discharge Medical recommendations Discharge planning: Medications will be prescribed today for possibility of discharge home on 03/04/2022, we'll reassess tomorrow morning Time with Patient: Less than 30
--- NOTE | 2022-03-03 13:26 | P.PN ---
Subjective Progress Note Date: 03/03/22 The patient is a 56-year-old male with a PMH of hypertension, hyperlipidemia, and chronic lower back pain who was admitted for scheduled lumbosacral laminectomy and fusion. The patient underwent the procedure earlier today and was seen postoperatively on the surgical unit. Patient seen and examined. No acute events overnight. Patient reports 6-7 out of 10 pain in his lower back. He has been able to ambulate with the aid of a walker. General: non toxic, no distress, appears at stated age Derm: warm, dry Head: atraumatic, normocephalic, symmetric Eyes: EOMI, no lid lag, anicteric sclera Mouth: no lip lesion, mucus membranes moist Cardiovascular: S1S2 reg, no murmur Lungs: CTA bilateral, no rhonchi, no rales , no accessory muscle use Ext: no gross muscle atrophy, no edema, no contractures Neuro: no focal neuro deficits Psych: Alert, oriented, appropriate affect #Leukocytosis Leukocytosis likely reactive given surgical procedure. No signs of active infection. Continue to monitor. Chronic conditions: Hypertension, hyperlipidemia Continue with all meds Status post lumbosacral laminectomy and fusion Defer management including pain control and DVT prophylaxis to the primary surge ry service Working well with PT and OT. Likely discharge home tomorrow if able to achieve better pain control. We appreciate this opportunity to be involved in this patient's care. We will follow the patient with you. For any further questions, please not hesitate to contact the [facility] inpatient team. Objective - Vital Signs Vital signs: Vital Signs Temp 98.1 F 03/03/22 06:55 Pulse 86 03/03/22 06:55 Resp 16 03/03/22 06:55 BP 107/62 03/03/22 06:55 Pulse Ox 92 L 03/03/22 06:55 FiO2 Intake & Output 03/02/22 03/03/22 03/03/22 18:59 06:59 18:59 Output Total 750 Balance -750 Output: Urine 750 Other: # Voids 2 1 1 - Labs CBC & Chem 7: 03/02/22 05:57 03/02/22 05:57
[2022-03-03] MEDS: ATORVASTATIN 20 MG TAB PO SCH (21:33)
[2022-03-04] MEDS: ACETAMINOPHEN TAB 500 MG TAB PO SCH ×2 (05:15→11:38)
[2022-03-04] MEDS: HYDROmorphone 1 MG/ML 1 ML SYRINGE IVP PRN (05:15)
[2022-03-04] MEDS: GABAPENTIN 400 MG CAP PO SCH (07:29)
[2022-03-04] MEDS: CYCLOBENZAPRINE 10 MG TAB PO SCH (07:30)
[2022-03-04] MEDS: VENLAFAXINE HCL ER 75 MG CAP PO SCH (07:30)
[2022-03-04] MEDS: LACTATED RINGERS 1,000 ML IV SCH (07:32)
[2022-03-04 07:34] VITALS: BP 111/71; PULSE 76; RESP 17; TEMP 98.4
[2022-03-04] MEDS ORDERED: polyethylene glycoL 3350 17 GM POWD.PACK PO SCH (09:00)
--- NOTE | 2022-03-04 09:27 | P.PN ---
Subjective Progress Note Date: 03/04/22 Principal diagnosis: Status post MIS L4-S1 decompression and fusion Patient was examined today at bedside, he is resting in his hospital bed. Patient is feeling a lot better he states today. He did utilize the IV pain medication a few different instances last night but seems to be much improved today. He has been utilizing a walker with ambulation. He is urinating with no difficulty, he is passing gas. Objective - Vital Signs Vital signs: Vital Signs Temp 98.4 F 03/04/22 06:51 Pulse 76 03/04/22 06:51 Resp 17 03/04/22 06:51 BP 111/71 03/04/22 06:51 Pulse Ox 94 L 03/04/22 06:51 FiO2 Intake & Output 03/03/22 03/04/22 03/04/22 18:59 06:59 18:59 Other: # Voids 4 4 1 - Exam Gen: AOx3, NAD VSS stable at this time Integument: Bandages are clean, dry and intact Palpation: Mild tenderness with palpation to the paraspinal regions in the lower lumbar spine ROM: Range of motion in all major muscle groups of bilateral upper and lower extremity, no focal deficits Sensory Exam: Senory exam to light touch is intact C5-T1 Senosry exam to light touch is intact L2-S1, patient notes significant improvement in the numbness in the left lower extremity. Patient notes a small area numbness on the right lower extremity near the knight that is greatly improved since surgery Motor: 55 strength appreciated in the bilateral upper extremities with shoulder elevation, extension, elbow flexion, wrist extension, wrist flexion, maritime pilot 4-5 strength appreciated in the bilateral lower extremities with hip flexion, knee extension, knee flexion, plantar flexion, dorsiflexion, EHL, FHL Reflexes: 2/4 in all UE and LE Negative Hoffmans, Babinski, clonus bilaterally - Labs CBC & Chem 7: 03/02/22 05:57 03/02/22 05:57 Assessment and Plan Assessment: Postoperative day #3 status post MIS L4-S1 decompression and fusion Plan: Pain control, he will resume flexeril and gabapentin at discharge, oxycodone for the first 5-7 days DVT prophylaxis, compression stockings at all times, SCDs while in bed or in chair Weight-bear as tolerated with walker, no bending, lifting or twisting Wound care instructions were discussed with patient, this including continued use of bandages and showering instructions Encourage incentive spirometer Discussed with case management the need for home health care after discharge Medical recommendations Discharge planning: Stable for discharge home today Time with Patient: Less than 30
--- NOTE | 2022-03-04 09:31 | P.DS ---
Providers Date of admission: 03/02/22 11:56 Expected date of discharge: 03/04/22 Attending physician: Roberto William DO Consults: 03/01/22 16:04 Consult Physician Routine Consulting Provider: Maria Teresa Diaz Consult Reason/Comments: medical management Do you want consulting provider notified?: Yes Primary care physician: [facility] Course: Date of admission: 03/01/2022 Date of discharge: 03/04/2022 Admission diagnosis: Status post L4-S1 MIS decompression and fusion Discharge diagnosis: Same Attending physician: Dr. William Surgical procedures: L4-S1 MIS decompression and fusion Brief history: Patient is a 56-year-old male who has been evaluated in the outpatient setting by Dr. Ochoa with regards to low back pain, lower extremity weakness, and L4-S1 spondylosis with central canal stenosis. Initial conservative measures did not resolve symptoms, he proceeded with an elective L4-S1 MIS decompression and fusion. Hospital course: Details of patient's surgery can be found in operative report. Patient tolerated the procedure well and was subsequently transported to orthopedic floor. Patient's orthopeidc and medical care was provided daily. Patient had daily laboratory tests performed for evaluation of overall blood counts. Patient had daily physical therapy to include strengthening range of motion as well as education with walker ambulation. Patient was treated with compression stockings and SCDs for their postoperative DVT prophylaxis during their inpatient stay. Patient was noted to have a relatively uneventful postoperative course. Patient reported satisfactory pain control with oral pain medications by postoperative day 2. Patient showed satisfactory progress with physical therapy. Patient moved steadily through the program and had no difficulty meeting the goals by postoperative day 3. Given patient's otherwise satisfactory course and having met physical therapy goals, plan is to discharge patient home on postoperative day 3. Discharge condition/disposition: Patient will be discharged home in stable condition. Discharge medications: Instructions are given on resumption of patient's normal daily medications per primary care recommendation, in addition patient will be prescribed oxycodone 5 mg, Duricef 500 mg, MiraLAX 17 g, senna S, Tylenol 1000 milligrams Spine Discharge and Recovery Instructions All medication refills should be obtained through your primary care doctor or your clinic spine surgeon. Please discuss prescription refills at your follow up appointment. Do not call the hospital for medication refills. Dressing: Leave your dressing in place for a total of 5 days post operatively. Then you may remove your dressing and leave open to air. Keep the area clean and if not able to keep area clean, then cover with sterile gauze and tape. Showering: You may shower 3 days after your procedure allowing soap and water to run over incision. Do not scrub. Do not soak. Blot dry. Follow up: Please confirm a follow up appointment with your surgeon 3 weeks post operatively. Please make an appointment to follow up with your PCP in 1-2 weeks after surgery for evaluation 3 phase, 3-week plan POST OP WEEKS 1-3 1. Lifting/carrying/pushing/pulling limited to less than 5 pounds. 2. Do not sit for longer than 15 minutes at one time. Get up and walk around. Prolonged sitting is NOT advised. If you lay down, see if you can tolerate laying down on you front (belly side) 3. Walk for periods of 15 minutes = 1 mile but no longer; do it multiple times times each day. 4. Ice your low back after activity. POST OP WEEKS 3-6 1. Lifting limited to less than 20 pounds. 2. Do not sit for longer than 30 minutes at a time. Frequently change positions. Use a sit-to stand workstation or take frequent breaks from sitting if you have returned to work. 3. Walk for 30 minutes each day. If possible, do these three or more times a day POST OP WEEKS 6+ At your 6-week appointment we will give you a physical therapy referral to focus on a core stabilization and strengthening program. You should also work on leg & buttock strengthening, hamstring & quadriceps stretching, and continue a low impact aerobic activity program such as swimming, walking, or riding a stationary bicycle. During the initial 6 weeks after your surgery, you are at the highest risk of re-injuring your spine. You should generally avoid BLTs (bending, lifting and twisting combination motions) and follow the above guidelines to reduce the chance of reinjury. You can anticipate post op appointments in our office at approximately 3 weeks and 6 weeks after your surgery. INCISION CARE: If your incision is not draining you do NOT need to cover it with a dressing. Keep your incision clean, dry and intact. In most cases, we apply skin glue, chloe or sutures to the incision at the time of surgery. This will be like a crust or have the appearance of a scab and will fall off in time on its own. The stitches or chloe need to be removed at 3 weeks post op appointment. You may begin to shower 3 days after surgery (this allows the glue to iraheta well). However, please avoid scrubbing the incision site or peeling off any of the skin glue. This will ensure optimal healing of your incision. Also, during this time avoid soaking the incision area in water - this includes swimming pools, hot tubs or baths. No ointments, lotions or o ils on the incision until your surgeon allows. Leave chloe, sutures or glue in place. Neurological dysfunction that comes on suddenly can also be a sign of a stroke. Below some common symptoms of a stroke are listed: B - balance difficulty such as sudden onset walking or leaning to one side - NEW E - eye problem such as sudden double vision or trouble seeing on one side - NEW F - Facial weakness or numbness on one side - NEW A - Arm or leg weakness or numbness on one side - NEW S - Slurred speech or difficulty with word finding - NEW T - Time is BRAIN! Call 911 as soon as you recognize these symptoms Diet: Consume a regular diet rich in vegetables and lean protein such as chicken or fish. You should consume in a ratio of approximately 20% fats|40% carbohydrates|40%protein. Vegetables, sweet potatoes, brown rice or quinoa are examples of good carbohydrates. Chips, white bread, cookies and sweets/sugar are examples of bad carbohydrates. Limit your bad carbs, go wild with good carbs. "Life's Simple 7" Guidelines as per [place] [employer] These will help you reclaim your life after surgery and leaf conditioner helper in your recovery, keeping in mind your restrictions. (1) Get Active. Physical activity can help people lose weight, control high blood pressure and cholesterol, feel emotionally better, and sleep better. (2) Control Cholesterol. Avoid a diet high in saturated fat, trans fat, & cholesterol. Limit whole milk & cream, ice cream, butter, egg yolks, processed meats (like sausage and hot dogs), and fatty meats. Choose healthy foods that are low in saturated fat, trans fat and cholesterol which include: Fruits and vegetables, fiber rich grain products (like whole grain pasta and brown rice), lean meat such as chicken, fish, nuts, seeds, and legumes. (3) Eat Better. Eat small portions. Shop at the grocery with a list and do not stray from it. Tips for a healthy diet include: Limit sodium intake to less than 1500mg daily, avoid prepackaged, processed, and fast foods, choose a diet rich in fruits, vegetables, and whole grain, high fiber foods, and limit saturated & cholesterol in your diet. (4) Manage Blood Pressure. If you have high blood pressure, you should have a cuff at home so that you can check your blood pressure regularly. Be sure you have a good cuff. An arm one is generally better than a wrist one. Bring the cuff to a doctor's appointment to validate that the measurements that your cuff are taking are accurate. Take your blood pressure twice daily when you are sitting down and relaxing. Record the numbers in a log and bring this log with you to your doctors' appointments. (5) Lose Weight if your BMI is above 25. A healthy BMI is between 19-25. To calculate Your BMI, you may use a Standard BMI Calculator on the NIH BMI website: <www.nhlbi.nih.gov/guidelines/obesity/BMI/bmicalc.htm>. Weigh oneself daily. If you are overweight, set a goal to lose weight. A pound a week loss if needed is a good target. (6) Reduce Blood Sugar. Limit foods and liquids with "added sugars." (Added sugars include sucrose, fructose, glucose, maltose, dextrose, high fructose corn syrup, corn syrup, concentrated fruit juice and honey). (7) Stop Smoking. If you smoke, quitting smoking is one of the best things that you can do for your health. Smoking increases your risk of heart attack, stroke, and peripheral vascular disease, which is a build-up of plaque in your arteries. Please discard all the cigarettes and lighters in your house. Have a plan for what you will do when you have the urge to smoke. Direct and second- hand smoke shortens your life as well as the lives of your family, friends and others around you. For your health and the health of those around you, please consider quitting! Proper Bending Body Mechanics: Maintain a wide stance with one foot slightly in front of the other. Keep your back straight. Bend utilizing the strength in your hips and knees. Do not bend at the waist. Maintain the lifted object at your waist-level close to your body. Avoid lifting weight that causes immediately pain or pain anywhere in the body afterwards. Smoking/Nicotine If there was ever one thing that you could do to increase your overall health, decrease your risk of cardiovascular problems by about 39% the second you make the choice, it is to STOP SMOKING. Your body's most instant gratification is the second you stop smoking. We have all heard the studies, read the articles but it is true, smoking is extremely bad for your overall health, and moreover it is detrimental to your bone health. Nicotine, IN ANY FORM, kills bone cells, prevents your body from healing fractures, and significantly prolongs healing after surgery. In spine surgery specifically, it increases your risk of not healing your bones to create a fusion and increases your risk of having a revision surgery due to this up to 60%. I know it is hard. I know it feels impossible. But there are ways. Take control of your life. We are here to help you through it. And when you are ready, ask us and we can direct you to help if you desire. Use the START Plan to Quit Smoking (please visit the Helpguide.org website listed below for more information): S = Set a quit date. Choose a date within the next 2 weeks, so you have enough time to prepare without losing your motivation to quit. If you mainly smoke at work, quit on the weekend, so you have a few days to adjust to the change. T = Tell family, friends, and co-workers that you plan to quit. Let your friends and family in on your plan to quit smoking and tell them you need their support and encouragement to stop. Look for a quit wilver who wants to stop smoking as well. You can help each other get through the rough times. A = Anticipate and plan for the challenges you'll face while quitting. Most people who begin smoking again do so within the first 3 months. You can help yourself make it through by preparing ahead for common challenges, such as nicotine withdrawal and cigarette cravings. R = Remove cigarettes and other tobacco products from your home, car, and work. Throw away all your cigarettes (no emergency pack!), lighters, ashtrays, and matches. Wash your clothes and freshen up anything that smells like smoke. Shampoo your car, clean your drapes and carpet, and steam your furniture. T = Talk to your doctor about getting help to quit. Your doctor can prescribe medication to help with withdrawal and suggest other alternatives. If you can't see a doctor, you can get many products over the counter at your local pharmacy or grocery store, including the nicotine patch, nicotine lozenges, and nicotine gum. Resources for Quitting Smoking: <https://www.[place].gov/documents/[facility]/Quit_Tobacco_Resources_for_patients_313 480_7.pdf> Supplementation: Take recommended dosages of Vitamin D and Calcium to help fortify your bones and help them to heal. See your health maintenance packet for dosages and recommended levels. DVT/VTE prophylaxis: You will be given compression stockings from the hospital. Wear these daily for the first two weeks after surgery. You may take them off at night. You may be prescribed a medication to help thin your blood. Take this as directed. If you are not prescribed this medication, early and frequent ambulation has been shown to be the best prophylaxis to deep vein thrombosis and sequelae related to this event. Procedures: MIS L4-S1 decompression and fusion Patient Condition at Discharge: Good Plan - Discharge Summary Discharge Rx Participant: Yes New Discharge Prescriptions: New cefaDROXiL [Duricef] 500 mg PO Q12HR 5 Days #10 cap polyethylene glycoL 3350 [Miralax] 17 gm PO DAILY PRN #21 packet PRN Reason: Constipation Sennosides/Docusate Sodium [Senna-S 8.6-50 mg Tablet] 1 each PO DAILY PRN #30 tablet PRN Reason: Constipation oxyCODONE HCL [OxyIR] 5 mg PO Q4H PRN 7 Days #42 tab PRN Reason: Pain Acetaminophen Tab [Tylenol Tab] 1,000 mg PO Q6HR PRN #30 tablet PRN Reason: Pain No Action Meloxicam [Mobic] 15 mg PO DAILY PRN PRN Reason: Pain Gabapentin [Neurontin] 1,200 mg PO TID Venlafaxine HCl [Effexor XR] 75 mg PO DAILY Prazosin HCl 2 mg PO HS traMADol HCL [Ultram] 50 - 100 mg PO Q4HR PRN PRN Reason: Pain Atorvastatin [Lipitor] 20 mg PO HS Zolpidem [Ambien] 10 mg PO HS PRN PRN Reason: Insomnia Lisinopril-Hctz 10-12.5 mg [Zestoretic 10-12.5] 1 tab PO DAILY Butalb/Acetaminophen/Caffeine [Fioricet 50-300-40 mg Capsule] 1 - 2 cap PO Q4HR PRN PRN Reason: migraines Cyclobenzaprine [Flexeril] 10 mg PO HS Diclofenac Sodium Gel [Voltaren Gel] 2 gm TOPICAL QID Discharge Medication List Gabapentin [Neurontin] 1,200 mg PO TID 09/19/14 [History] Meloxicam [Mobic] 15 mg PO DAILY PRN 09/19/14 [History] Atorvastatin [Lipitor] 20 mg PO HS 03/09/17 [History] Prazosin HCl 2 mg PO HS 03/09/17 [History] Venlafaxine HCl [Effexor XR] 75 mg PO DAILY 03/09/17 [History] traMADol HCL [Ultram] 50 - 100 mg PO Q4HR PRN 03/09/17 [History] Butalb/Acetaminophen/Caffeine [Fioricet 50-300-40 mg Capsule] 1 - 2 cap PO Q4HR PRN 08/18/19 [History] Cyclobenzaprine [Flexeril] 10 mg PO HS 08/18/19 [History] Lisinopril-Hctz 10-12.5 mg [Zestoretic 10-12.5] 1 tab PO DAILY 08/18/19 [History] Zolpidem [Ambien] 10 mg PO HS PRN 08/18/19 [History] Diclofenac Sodium Gel [Voltaren Gel] 2 gm TOPICAL QID 02/26/22 [History] Acetaminophen Tab [Tylenol Tab] 1,000 mg PO Q6HR PRN #30 tablet 03/03/22 [Rx] Sennosides/Docusate Sodium [Senna-S 8.6-50 mg Tablet] 1 each PO DAILY PRN #30 tablet 03/03/22 [Rx] cefaDROXiL [Duricef] 500 mg PO Q12HR 5 Days #10 cap 03/03/22 [Rx] oxyCODONE HCL [OxyIR] 5 mg PO Q4H PRN 7 Days #42 tab 03/03/22 [Rx] polyethylene glycoL 3350 [Miralax] 17 gm PO DAILY PRN #21 packet 03/03/22 [Rx] Follow up Appointment(s)/Referral(s): [facility], [NON-STAFF] - 1-2 Days (Will call to set up appointment. Any questions please call agency. ) Roberto William DO [Doctor of Osteopathic Medicine] - 2 Weeks Activity/Diet/Wound Care/Special Instructions: Spine Discharge and Recovery Instructions Dressing: Leave your dressing in place for a total of 5 days post operatively. Then you may remove your dressing and leave open to air. Keep the area clean and if not able to keep area clean, then cover with sterile gauze and tape. Showering: You may shower 3 days after your procedure allowing soap and water to run over incision. Do not scrub. Do not soak. Blot dry. Follow up: Please confirm a follow up appointment with your surgeon 3 weeks post ope ratively. Please make an appointment to follow up with your PCP in 1-2 weeks after surgery for evaluation 3 phase, 3-week plan POST OP WEEKS 1-3 1. Lifting/carrying/pushing/pulling limited to less than 5 pounds. 2. Do not sit for longer than 15 minutes at one time. Get up and walk around. Prolonged sitting is NOT advised. If you lay down, see if you can tolera te laying down on you front (belly side) 3. Walk for periods of 15 minutes = 1 mile but no longer; do it multiple times times each day. 4. Ice your low back after activity. POST OP WEEKS 3-6 1. Lifting limited to less than 20 pounds. 2. Do not sit for longer than 30 minutes at a time. Frequently change positions. Use a sit-to stand workstation or take frequent breaks from sitting if you have returned to work. 3. Walk for 30 minutes each day. If possible, do these three or more times a day POST OP WEEKS 6+ At your 6-week appointment we will give you a physical therapy referral to focus on a core stabilization and strengthening program. You should also work on leg & buttock strengthening, hamstring & quadriceps stretching, and continue a low impact aerobic activity program such as swimming, walking, or riding a stationary bicycle. During the initial 6 weeks after your surgery, you are at the highest risk of re-injuring your spine. You should generally avoid BLTs (bending, lifting and twisting combination motions) and follow the above guidelines to reduce the chance of reinjury. You can anticipate post op appointments in our office at approximately 3 weeks and 6 weeks after your surgery. INCISION CARE: If your incision is not draining you do NOT need to cover it with a dressing. Keep your incision clean, dry and intact. In most cases, we apply skin glue, chloe or sutures to the incision at the time of surgery. This will be like a crust or have the appearance of a scab and will fall off in time on its own. The stitches or chloe need to be removed at 3 weeks post op appointment. You may begin to shower 3 days after surgery (this allows the glue to iraheta well). However, please avoid scrubbing the incision site or peeling off any of the skin glue. This will ensure optimal healing of your incision. Also, during this time avoid soaking the incision area in water - this includes swimming pools, hot tubs or baths. No ointments, lotions or oils on the incision until your surgeon allows. Leave chloe, sutures or glue in place. Neurological dysfunction that comes on suddenly can also be a sign of a stroke. Below some common symptoms of a stroke are listed: B - balance difficulty such as sudden onset walking or leaning to one side - NEW E - eye problem such as sudden double vision or trouble seeing on one side - NEW F - Facial weakness or numbness on one side - NEW A - Arm or leg weakness or numbness on one side - NEW S - Slurred speech or difficulty with word finding - NEW T - Time is BRAIN! Call 911 as soon as you recognize these symptoms Diet: Consume a regular diet rich in vegetables and lean protein such as chicken or fish. You should consume in a ratio of approximately 20% fats|40% carbohydrates|40%protein. Vegetables, sweet potatoes, brown rice or quinoa are examples of good carbohydrates. Chips, white bread, cookies and sweets/sugar are examples of bad carbohydrates. Limit your bad carbs, go wild with good carbs. "Life's Simple 7" Guidelines as per [place] [employer] These will help you reclaim your life after surgery and leaf conditioner helper in your recovery, keeping in mind your restrictions. (1) Get Active. Physical activity can help people lose weight, control high blood pressure and cholesterol, feel emotionally better, and sleep better. (2) Control Cholesterol. Avoid a diet high in saturated fat, trans fat, & cholesterol. Limit whole milk & cream, ice cream, butter, egg yolks, processed meats (like sausage and hot dogs), and fatty meats. Choose healthy foods that are low in saturated fat, trans fat and cholesterol which include: Fruits and vegetables, fiber rich grain products (like whole grain pasta and brown rice), lean meat such as chicken, fish, nuts, seeds, and legumes. (3) Eat Better. Eat small portions. Shop at the grocery with a list and do not stray from it. Tips for a healthy diet include: Limit sodium intake to less than 1500mg daily, avoid prepackaged, processed, and fast foods, choose a diet rich in fruits, vegetables, and whole grain, high fiber foods, and limit saturated & cholesterol in your diet. (4) Manage Blood Pressure. If you have high blood pressure, you should have a cuff at home so that you can check your blood pressure regularly. Be sure you have a good cuff. An arm one is generally better than a wrist one. Bring the cuff to a doctor's appointment to validate that the measurements that your cuff are taking are accurate. Take your blood pressure twice daily when you are sitting down and relaxing. Record the numbers in a log and bring this log with you to your doctors' appointments. (5) Lose Weight if your BMI is above 25. A healthy BMI is between 19-25. To calculate Your BMI, you may use a Standard BMI Calculator on the NIH BMI website: <www.nhlbi.nih.gov/guidelines/obesity/BMI/bmicalc.htm>. Weigh oneself daily. If you are overweight, set a goal to lose weight. A pound a week loss if needed is a good target. (6) Reduce Blood Sugar. Limit foods and liquids with "added sugars." (Added sugars include sucrose, fructose, glucose, maltose, dextrose, high fructose corn syrup, corn syrup, concentrated fruit juice and honey). (7) Stop Smoking. If you smoke, quitting smoking is one of the best things that you can do for your health. Smoking increases your risk of heart attack, stroke, and peripheral vascular disease, which is a build-up of plaque in your arteries. Please discard all the cigarettes and lighters in your house. Have a plan for what you will do when you have the urge to smoke. Direct and second- hand smoke shortens your life as well as the lives of your family, friends and others around you. For your health and the health of those around you, please consider quitting! Proper Bending Body Mechanics: Maintain a wide stance with one foot slightly in front of the other. Keep your back straight. Bend utilizing the strength in your hips and knees. Do not bend at the waist. Maintain the lifted object at your waist-level close to your body. Avoid lifting weight that causes immediately pain or pain anywhere in the body afterwards. Smoking/Nicotine If there was ever one thing that you could do to increase your overall health, decrease your risk of cardiovascular problems by about 39% the second you make the choice, it is to STOP SMOKING. Your body's most instant gratification is the second you stop smoking. We have all heard the studies, read the articles but it is true, smoking is extremely bad for your overall health, and moreover it is detrimental to your bone health. Nicotine, IN ANY FORM, kills bone cells, prevents your body from healing fractures, and significantly prolongs healing after surgery. In spine surgery specifically, it increases your risk of not healing your bones to create a fusion and increases your risk of having a revision surgery due to this up to 60%. I know it is hard. I know it feels impossible. But there are ways. Take control of your life. We are here to help you through it. And when you are ready, ask us and we can direct you to help if you desire. Use the START Plan to Quit Smoking (please visit the [employer].org website listed below for more information): S = Set a quit date. Choose a date within the next 2 weeks, so you have enough time to prepare without losing your motivation to quit. If you mainly smoke at work, quit on the weekend, so you have a few days to adjust to the change. T = Tell family, friends, and co-workers that you plan to quit. Let your friends and family in on your plan to quit smoking and tell them you need their support and encouragement to stop. Look for a quit wilver who wants to stop smoking as well. You can help each other get through the rough times. A = Anticipate and plan for the challenges you'll face while quitting. Most people who begin smoking again do so within the first 3 months. You can help yourself make it through by preparing ahead for common challenges, such as nicotine withdrawal and cigarette cravings. R = Remove cigarettes and other tobacco products from your home, car, and work. Throw away all your cigarettes (no emergency pack!), lighters, ashtrays, and matches. Wash your clothes and freshen up anything that smells like smoke. Shampoo your car, clean your drapes and carpet, and steam your furniture. T = Talk to your doctor about getting help to quit. Your doctor can prescribe medication to help with withdrawal and suggest other alternatives. If you can't see a doctor, you can get many products over the counter at your local pharmacy or grocery store, including the nicotine patch, nicotine lozenges, and nicotine gum. Resources for Quitting Smoking: <https://www.[place].gov/do [facility]/[facility]/Quit_Tobacco_Resources_for_patients_313480_7.pdf> Supplementation: Take recommended dosages of Vitamin D and Calcium to help fortify your bones and help them to heal. See your health maintenance packet for dosages and recommended levels. DVT/VTE prophylaxis: You will be given compression stockings from the hospital. Wear these daily for the first two weeks after surgery. You may take them off at night. You may be prescribed a medication to help thin your blood. Take this as directed. If you are not prescribed this medication, early and frequent ambulation has been shown to be the best prophylaxis to deep vein thrombosis and sequelae related to this event. Discharge Disposition: HOME WITH HOME HEALTH SERVICES
== END 2022-03-04 12:39 | disposition home health service (06) ==
LOC: OR 10:13 → EDSTATUS 12:00 → 4SSUR 15:53 → OR 03-02 11:56 → 4SSUR 03-02 11:56 → INTOOBSV 03-02 11:56 → OBSVTOIN 03-02 11:56
PROVIDERS: ADMIT Orthopaedic Surgery; ATTEND Orthopaedic Surgery
DX: M47.27 Other spondylosis with radiculopathy, lumbosacral region (principal); M48.07 Spinal stenosis, lumbosacral region; I10 Essential (primary) hypertension; E78.5 Hyperlipidemia, unspecified; G47.33 Obstructive sleep apnea (adult) (pediatric); G43.909 Migraine, unspecified, not intractable, without status migrainosus; Z98.1 Arthrodesis status; Z98.890 Other specified postprocedural states; F43.10 Post-traumatic stress disorder, unspecified; Z97.2 Presence of dental prosthetic device (complete) (partial); Z79.899 Other long term (current) drug therapy; Z79.891 Long term (current) use of opiate analgesic; Z79.1 Long term (current) use of non-steroidal anti-inflammatories (NSAID)
CPT/HCPCS: 22633; 22634; 22853 ×2; 63052; 63053; 94760; 97116; 97161; 86900; 86901; 80048; 85025; 86850; 72100; 72131; G0378 ×3; C1713; C1762; J2250; J3370; J0330; J1100; J0690 ×4; J2405 ×2; J3010; J1170 ×5; J2704; J2001

== ENCOUNTER 2023-03-26 15:48 | Emergency (ER) | payer MEDICARE, OTHER ==
--- NOTE | 2023-03-26 16:32 | ED ---
General Adult HPI - General Source: patient, RN notes reviewed Mode of arrival: ambulatory Limitations: no limitations <Sona Bennett - Last Filed: 03/26/23 16:27> - General Source: patient, RN notes reviewed Mode of arrival: ambulatory Limitations: no limitations <Alice Mason - Last Filed: 03/27/23 10:30> - General Chief complaint: Abdominal Pain Stated complaint: Abd pain Time Seen by Provider: 03/26/23 16:27 - History of Present Illness Initial comments: 57 year old male presents to the emergency department for evaluation of upper abdominal pain that started this morning when he woke up. He reports that it has since worsened. Last bowel movement was today. Denies nausea, vomiting. (Sona Bennett) This is a 57-year-old male who presents to the emergency department for abdominal pain. States that this started when he woke up this morning and his abdomen feels firm. The pain is coming in waves. States that this starts in the mid to lower abdomen and seems to radiate upwards. Pain does not go into the back. Denies any chest pain, shortness of breath, fevers/chills, nausea/vomiting, or history of similar symptoms in the past. He has had 2 bowel movements today and is still passing gas. He has Tramadol, Mobic, and Gabapentin at home to use if needed, however he did not take it today, as he wanted to see what was going on first. (Alice Mason) - Related Data Home Medications Medication Instructions Recorded Confirmed Gabapentin [Neurontin] 1,200 mg PO TID PRN 09/19/14 03/26/23 Meloxicam [Mobic] 15 mg PO DAILY PRN 09/19/14 03/26/23 Prazosin HCl 2 mg PO HS 03/09/17 03/26/23 Venlafaxine HCl [Effexor XR] 75 mg PO DAILY 03/09/17 03/26/23 traMADol HCL [Ultram] 50 - 100 mg PO Q4HR PRN 03/09/17 03/26/23 Lisinopril-Hctz 10-12.5 mg 1 tab PO DAILY 08/18/19 03/26/23 [Zestoretic 10-12.5] Zolpidem [Ambien] 10 mg PO DIRECTED PRN 08/18/19 03/26/23 Diclofenac Sodium Gel [Voltaren 2 gm TOPICAL QID PRN 02/26/22 03/26/23 Gel] Atorvastatin Calcium [Lipitor] 40 mg PO HS 03/26/23 03/26/23 Allergies Allergy/AdvReac Type Severity Reaction Status Date / Time No Known Allergies Allergy Verified 03/26/23 19:23 Review of Systems ROS Other: All systems not noted in ROS Statement are negative. <Sona Bennett - Last Filed: 03/26/23 16:27> ROS Other: All systems not noted in ROS Statement are negative. <Alice Mason - Last Filed: 03/27/23 10:30> ROS Statement: Those systems with pertinent positive or pertinent negative responses have been documented in the HPI. Past Medical History Past Medical History: Hypertension, Osteoarthritis (OA), Sleep Apnea/CPAP/BIPAP Additional Past Medical History / Comment(s): migraines, History of Any Multi-Drug Resistant Organisms: None Reported Past Surgical History: Back Surgery, Hernia Repair, Orthopedic Surgery Additional Past Surgical History / Comment(s): left knee ACL, cervical fusion, umbilical hernia repair, left arm surgery after injury, COLONOSCOPY, MULTIPLE NERVE ABLATIONS TO BACK, LUMBAR FUSION 03/01/2022 Past Anesthesia/Blood Transfusion Reactions: Previous Problems w/ Anesthesia Additional Past Anesthesia/Blood Transfusion Reaction / Comment(s): ketamine- causes flashbacks d/t PTSD Past Psychological History: PTSD Smoking Status: Never smoker - Past Family History Mother Family Medical History: Hypertension <Sona Bennett - Last Filed: 03/26/23 16:27> General Exam Limitations: no limitations <Sona Bennett - Last Filed: 03/26/23 16:27> Limitations: no limitations General appearance: alert, in no apparent distress Head exam: Present: atraumatic, normocephalic, normal inspection Respiratory exam: Present: normal lung sounds bilaterally. Absent: respiratory distress, wheezes, rales, rhonchi, stridor Cardiovascular Exam: Present: regular rate, normal rhythm, normal heart sounds. Absent: systolic murmur, diastolic murmur, rubs, gallop, clicks GI/Abdominal exam: Present: soft, tenderness (diffuse), normal bowel sounds. Absent: distended Neurological exam: Present: alert, oriented X3, CN II-XII intact Psychiatric exam: Present: normal affect, normal mood Skin exam: Present: warm, dry, intact, normal color. Absent: rash <Alice Mason - Last Filed: 03/27/23 10:30> - General Exam Comments Initial Comments: Visual Physical Exam Vital signs reviewed General: Well-appearing, nontoxic, no acute distress. Head: Normocephalic, atraumatic Eyes: PERRLA, EOMI ENT: Airway patent Chest: Nonlabored breathing Skin: No visual rash, normal skin tone Neuro: Alert and oriented 3 Musculoskeletal: No gross abnormalities (Sona Bennett) Course Vital Signs 03/26/23 03/26/23 03/26/23 16:23 19:11 20:00 Temperature 97.9 F 98.6 F 97.0 F L Pulse Rate 86 91 82 Respiratory 20 18 19 Rate Blood Pressure 149/84 137/86 145/58 O2 Sat by Pulse 99 96 Oximetry Medical Decision Making <Sona Bennett - Last Filed: 03/26/23 16:27> - Lab Data Result diagrams: 03/26/23 16:40 03/26/23 16:40 - Radiology Data Radiology results: report reviewed, image reviewed <Alice Mason - Last Filed: 03/27/23 10:30> - Medical Decision Making Quick note preformed by Sona Bennett PA-C (Sona Bennett) This is a 57-year-old male who presents to the emergency department for abdominal pain. Was pt. sent in by a medical professional or institution? @ -No Did you speak to anyone other than the patient for history? @ -No Did you review nursing and triage notes? @ -Yes, and I agree, it is accurate with regards to the patient's symptoms. Were old charts reviewed? @ -No Differential Diagnosis? @ -Differential Abdominal Pain Men: Appendicitis, cholecystitis, diverticulosis, ischemic bowel, pancreatitis, hepatitis, UTI, gastroenteritis, AAA, incarcerated hernia, bowel obstruction, constipation, inflammatory bowel, hepatitis, peptic ulcer disease, splenic infarction, perforated viscus, testicular torsion, this is not meant to be an all-inclusive list EKG interpreted by me (3pts min.)? @ -EKG interpreted by me demonstrating the following: Sinus rhythm. Ventricular rate 88 bpm, WV interval 141 ms, QRS duration 90 ms, QTC 399 ms. X-rays interpreted by me (1pt min.)? @ -Not obtained CT interpreted by me (1pt min.)? @ -CT scan of the abdomen and pelvis obtained. My interpretation identifies flu id filled small bowel loops in the lower abdomen. U/S interpreted by me (1pt. min.)? @ -Not obtained What testing was considered but not performed? (CT, X-rays, U/S, labs)? Why? @ -None What meds were considered but not given? Why? @ -None Did you discuss the management of the patient with other professionals? @ -No Did you reconcile home meds? @ -No Was smoking cessation discussed for >3mins.? @ -No Was critical care preformed (if so, how long)? @ -No Were there social determinants of health that impacted care today? How? (Homelessness, low income, unemployed, alcoholism, drug addiction, transportation, low edu. Level, literacy, decrease access to med. care, snf, rehab)? @ -No Was there de-escalation of care discussed even if they declined? (Discuss DNR or withdrawal of care, Hospice)? @ -No What co-morbidities impacted this encounter? (DM, HTN, Smoking, COPD, CAD, Cancer, CVA, Hep., AIDS, mental health diagnosis, sleep apnea, morbid obesity)? @ -None Was patient admitted / discharged? @ -Discharged. Lab work obtained revealing mild leukocytosis and an elevated b lood sugar of 240. Urinalysis demonstrates 4+ glucose without evidence of infection. Patient denies a history of diabetes. Computed tomography scan of the abdomen and pelvis obtained demonstrating prominent fluid-filled small bowel loops in the mid to lower abdomen and pelvis that may be transient or could represent an ileus or enteritis. He also has mild pelvic free fluid which may be related to enteritis. Findings reviewed with the patient. Given that his pain is tolerable, he has no nausea or vomiting, and is still passing gas and having bowel movements, even if this were to be an ileus, given his current symptoms, he can be discharged home at this time. Patient was in agreement with this plan. He was however given strict return parameters. He has pain medication available to him at home that he can take if needed. Also advised a clear liquid diet for the next couple of days. Additionally, discussed that based on his blood sugar and glucose in the urine, there is concern for diabetes and he will need follow up with his PCP on this. Patient discharged home in stable condition. Undiagnosed new problem with uncertain prognosis? @ -None Drug Therapy requiring intensive monitoring for toxicity (Heparin, Nitro, Insulin, Cardizem)? @ -None Were any procedures done? @ -None Diagnosis/symptom? @ -Abdominal pain, enteritis/ileus, hyperglycemia Acute, or Chronic, or Acute on Chronic? @ -Acute Uncomplicated (without systemic symptoms) or Complicated (systemic symptoms)? @ -Uncomplicated Side effects of treatment? @ -None Exacerbation, Progression, or Severe Exacerbation] @ -Not applicable Poses a threat to life or bodily function? @ -No Return precautions reviewed in depth, the patient is instructed to return to the emergency department with any new, worsening, or concerning symptoms. Patient verbalized understanding. This case was discussed in detail with the attending ED physician, Dr. Marie. Presentation, findings, and treatment plan discussed in detail as well. (Alice Mason) - Lab Data Lab Results 03/26/23 03/26/23 03/26/23 Range/Units 16:40 16:40 16:40 WBC 11.9 H (3.8-10.6) k/uL RBC 5.44 (4.30-5.90) m/uL Hgb 15.5 (13.0-17.5) gm/dL Hct 47.4 (39.0-53.0) % MCV 87.1 (80.0-100.0) fL MCH 28.6 (25.0-35.0) pg MCHC 32.8 (31.0-37.0) g/dL RDW 12.6 (11.5-15.5) % Plt Count 278 (150-450) k/uL MPV 7.1 Neutrophils % 83 % Lymphocytes % 10 % Monocytes % 3 % Eosinophils % 3 % Basophils % 0 % Neutrophils # 9.9 H (1.3-7.7) k/uL Lymphocytes # 1.2 (1.0-4.8) k/uL Monocytes # 0.3 (0-1.0) k/uL Eosinophils # 0.3 (0-0.7) k/uL Basophils # 0.1 (0-0.2) k/uL Sodium 136 L (137-145) mmol/L Potassium 4.4 (3.5-5.1) mmol/L Chloride 108 H (98-107) mmol/L Carbon Dioxide 23 (22-30) mmol/L Anion Gap 5 mmol/L BUN 16 (9-20) mg/dL Creatinine 0.53 L (0.66-1.25) mg/dL Est GFR (CKD-EPI)AfAm >90 (>60 ml/min/1.73 sqM) Est GFR (CKD-EPI)NonAf >90 (>60 ml/min/1.73 sqM) Glucose 240 H (74-99) mg/dL Plasma Lactic Acid Silvestre 1.3 (0.7-2.0) mmol/L Calcium 9.6 (8.4-10.2) mg/dL Total Bilirubin 1.1 (0.2-1.3) mg/dL AST 25 (17-59) U/L ALT 33 (4-49) U/L Alkaline Phosphatase 102 (38-126) U/L Troponin I (0.000-0.034) ng/mL Total Protein 6.6 (6.3-8.2) g/dL Albumin 3.9 (3.5-5.0) g/dL Amylase 42 (30-110) U/L Lipase 83 (23-300) U/L Urine Color Urine Appearance (Clear) Urine pH (5.0-8.0) Ur Specific [place] (1.001-1.035) Urine Protein (Negative) Urine Glucose (UA) (Negative) Urine Ketones (Negative) Urine Blood (Negative) Urine Nitrite (Negative) Urine Bilirubin (Negative) Urine Urobilinogen (<2.0) mg/dL Ur Leukocyte Esterase (Negative) 03/26/23 03/26/23 Range/Units 16:40 19:10 WBC (3.8-10.6) k/uL RBC (4.30-5.90) m/uL Hgb (13.0-17.5) gm/dL Hct (39.0-53.0) % MCV (80.0-100.0) fL MCH (25.0-35.0) pg MCHC (31.0-37.0) g/dL RDW (11.5-15.5) % Plt Count (150-450) k/uL MPV Neutrophils % % Lymphocytes % % Monocytes % % Eosinophils % % Basophils % % Neutrophils # (1.3-7.7) k/uL Lymphocytes # (1.0-4.8) k/uL Monocytes # (0-1.0) k/uL Eosinophils # (0-0.7) k/uL Basophils # (0-0.2) k/uL Sodium (137-145) mmol/L Potassium (3.5-5.1) mmol/L Chloride (98-107) mmol/L Carbon Dioxide (22-30) mmol/L Anion Gap mmol/L BUN (9-20) mg/dL Creatinine (0.66-1.25) mg/dL Est GFR (CKD-EPI)AfAm (>60 ml/min/1.73 sqM) Est GFR (CKD-EPI)NonAf (>60 ml/min/1.73 sqM) Glucose (74-99) mg/dL Plasma Lactic Acid Silvestre (0.7-2.0) mmol/L Calcium (8.4-10.2) mg/dL Total Bilirubin (0.2-1.3) mg/dL AST (17-59) U/L ALT (4-49) U/L Alkaline Phosphatase (38-126) U/L Troponin I <0.012 (0.000-0.034) ng/mL Total Protein (6.3-8.2) g/dL Albumin (3.5-5.0) g/dL Amylase (30-110) U/L Lipase (23-300) U/L Urine Color Light Yellow Urine Appearance Clear (Clear) Urine pH 5.5 (5.0-8.0) Ur Specific [place] >1.050 H (1.001-1.035) Urine Protein Negative (Negative) Urine Glucose (UA) 4+ H (Negative) Urine Ketones Negative (Negative) Urine Blood Negative (Negative) Urine Nitrite Negative (Negative) Urine Bilirubin Negative (Negative) Urine Urobilinogen <2.0 (<2.0) mg/dL Ur Leukocyte Esterase Negative (Negative) Disposition <Sona Bennett - Last Filed: 03/26/23 16:27> Is patient prescribed a controlled substance at d/c from ED?: No Time of Disposition: 20:05 <Alice Mason - Last Filed: 03/27/23 10:30> Clinical Impression: Enteritis, Ileus, Hyperglycemia Disposition: HOME SELF-CARE Instructions (If sedation given, give patient instructions): Ileus (ED), Enteritis (ED) Additional Instructions: Return to the emergency department with any new, worsening, or concerning symptoms. Take your pain medication that you have at home as needed. Follow a clear liquid diet for the next couple of days. Follow up with your primary care provider in 1-2 days. Referrals: Pérez Uribe MD [Primary Care Provider] - 1-2 days
[2023-03-26 16:50] LABS: Basophils # (A) 0.1 k/uL (0-0.2); Basophils % (A) 0 %; Eosinophils # (A) 0.3 k/uL (0-0.7); Eosinophils % (A) 3 %; HCT 47.4 % (39.0-53.0); HGB 15.5 gm/dL (13.0-17.5); Lymphocytes # (A) 1.2 k/uL (1.0-4.8); Lymphocytes % (A) 10 %; MCH 28.6 pg (25.0-35.0); MCHC 32.8 g/dL (31.0-37.0); MCV 87.1 fL (80.0-100.0); Mean Platelet Volume 7.1; Monocytes # (A) 0.3 k/uL (0-1.0); Monocytes % (A) 3 %; Neutrophils # (A) 9.9 k/uL (1.3-7.7); Neutrophils % (A) 83 %; Platelet Count 278 k/uL (150-450); RBC 5.44 m/uL (4.30-5.90); RDW 12.6 % (11.5-15.5); WBC 11.9 k/uL (3.8-10.6)
[2023-03-26 16:59] LABS: ALT 33 U/L (4-49); AST 25 U/L (17-59); African American GFR (CKD) >90 (>60 ml/min/1.73 sqM); Albumin 3.9 g/dL (3.5-5.0); Alkaline Phosphatase 102 U/L (38-126); Amylase 42 U/L (30-110); Anion Gap 5 mmol/L; Blood Urea Nitrogen 16 mg/dL (9-20); Calcium 9.6 mg/dL (8.4-10.2); Carbon Dioxide 23 mmol/L (22-30); Chloride 108 mmol/L (98-107); Glucose 240 mg/dL (74-99); Lipase 83 U/L (23-300); Non-African American GFR(CKD) >90 (>60 ml/min/1.73 sqM); Potassium 4.4 mmol/L (3.5-5.1); Sodium 136 mmol/L (137-145); Total Bilirubin 1.1 mg/dL (0.2-1.3); Total Protein 6.6 g/dL (6.3-8.2)
[2023-03-26] MEDS: KETOROLAC 15 MG/ML 1 ML VIAL IVP STA (17:27)
[2023-03-26] MEDS: SODIUM CHLORIDE 0.9% 1,000 ML IV STA (17:29)
--- NOTE | 2023-03-26 18:16 | CT ---
EXAMINATION TYPE: CT abdomen pelvis w con DATE OF EXAM: 03/26/2023 COMPARISON: NONE HISTORY: 57-year-old male Mid/upper abdominal pain x1day. TECHNIQUE: Contiguous axial scanning of the abdomen and pelvis following administration of 100 ml Iso oneal 300 IV contrast. Delayed images through the kidneys and coronal/sagittal reconstructions perform ed. CT DLP: 2248.5 mGycm Automated exposure control for dose reduction was used. FINDINGS: Heart normal size without pericardial effusion. Lung bases clear without pleural effusion. Liver borderline enlarged at 17.6 cm. Diffuse low-attenuation of the hepatic parenchyma. No biliary d uctal dilatation. Portal venous system is patent. No abnormal gallbladder distention. Couple small renal cortical cysts measuring up to 1 cm on either side. Nonobstructive 4 mm right angeline l calculus. Symmetric uptake and excretion of contrast from both kidneys. Adrenal glands, spleen, and pancreas within normal limits. No dilated small bowel or free air. There are prominent fluid-filled small bowel loops throughout the mid and lower abdomen. Normal appendix. Scattered colonic diverticulosis. Mild overall stool burden. Findings inflammatory change. Bladder urine distended. Central prostatic calcifications. Prostate gland mildly enlarged at 5.3 cm w christian. Pelvic phleboliths. We note mild pelvic free fluid, typically a normal male patient. 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 No suspicious internal soft tissue nodularity. Status post L4-S1 posterior and interbody lumbar fusion changes. Facet arthropathy lower lumbar spine . IMPRESSION: 1. PROMINENT FLUID-FILLED SMALL BOWEL LOOPS MID TO LOWER ABDOMEN AND PELVIS MAY BE TRANSIENT OR COULD REPRESENT AN ILEUS OR ENTERITIS. 2. MILD PELVIC FREE FLUID, ABNORMAL IN A MALE PATIENT. POSSIBLY RELATED TO ABOVE-MENTIONED ENTERITIS. 3. GENERALIZED COLONIC DIVERTICULOSIS WITHOUT ACUTE DIVERTICULITIS. 4. AT LEAST MODERATE HEPATIC STEATOSIS. A COUPLE NONOBSTRUCTIVE RENAL CALCULI MEASURING UP TO 4 MM.
[2023-03-26 19:27] LABS: Appearance,Urine Clear (Clear); Bilirubin,Urine Negative (Negative); Blood,Urine Negative (Negative); Color,Urine Light Yellow; Glucose,Urine (UA) 4+ (Negative); Ketones,Urine Negative (Negative); Leukocyte Esterase,Urine Negative (Negative); Nitrite,Urine Negative (Negative); PH, Urine 5.5 (5.0-8.0); Protein,Urine Negative (Negative); Urobilinogen,Urine <2.0 mg/dL (<2.0)
[2023-03-26 19:51] LABS: Specific Gravity,Urine >1.050 (1.001-1.035)
[2023-03-26 20:20] VITALS: BP 145/58; PULSE 82; RESP 19; TEMP 97
== END 2023-03-26 20:21 | disposition home or self-care (01) ==
LOC: EC 15:48
DX: K52.9 Noninfective gastroenteritis and colitis, unspecified (principal); K56.7 Ileus, unspecified; R73.9 Hyperglycemia, unspecified; I10 Essential (primary) hypertension; G47.30 Sleep apnea, unspecified
CPT/HCPCS: 36415; 93005; 80053; 82150; 83605; 83690; 84484; 85025; 81003; 74177; 99284; 96374; 96361; J1885; Q9967